=== PATIENT | female | born 1960 | race Caucasian/White ===

== ENCOUNTER 2016-07-04 01:14 | Emergency (ER) | payer OTHER, MEDICARE ==
[~2016-07-04] VITALS: Ht 170.2 cm; Wt 93.0 kg
--- NOTE | 2016-07-04 01:17 | ED MVC/FALL/TRAUMA COMPLAINT ---
History of Present Illness General Chief Complaint: Fall Stated Complaint: MECHANICAL FALL Source: patient, old records, EMS Exam Limitations: no limitations Vital Signs & Intake/Output Vital Signs & Intake/Output Vital Signs Date Time Temp Pulse Resp B/P Pulse O2 O2 Flow FiO2 Ox Delivery Rate 07/04 0123 97.9 89 16 140/80 98 Allergies Coded Allergies: quetiapine (UNKNOWN 08/24/15) Reconcile Medications CANE 1 EACH EACH 1 UNIT .ROUTE X1 PRN FOR AMBULATION ICD 10 G35 Triage Nurses Notes Reviewed? yes Onset: Abrupt Duration: minute(s): Timing: single episode today Severity: mild, moderate Injuries/Fall Location: head Method of Injury: direct blow, fall Loss of Consciousness: no loss of consciousness Modifying Factors: Improves With: rest. Associated Symptoms: head injury HPI: 55 yo woman h/o multiple sclerosis, usually walks with a cane, woke up tonight to use the bathroom. She fell on the way back to bed and hit her head on a cardboard box. No LOC. Past History Medical History Any Pertinent Medical History? see below for history Neurological: multiple sclerosis Surgical History Surgical History: none Psychosocial History What is your primary language Taiwanese Family History Hx Contributory? No Review of Systems Review of Systems Constitutional: Reports: no symptoms. Eyes: Reports: no symptoms. Ears, Nose, Throat, Mouth: Reports: no symptoms. Respiratory: Reports: no symptoms. Cardiovascular: Reports: no symptoms. Gastrointestinal/Abdominal: Reports: no symptoms. Genitourinary: Reports: no symptoms. Musculoskeletal: Reports: no symptoms. Skin: Reports: no symptoms. Neurological/Psychological: Reports: no symptoms. All Other Systems: Reviewed and Negative Physical Exam Physical Exam General Appearance: well developed/nourished, no apparent distress, alert, mild distress Head: atraumatic, normal appearance Eyes: Bilateral: normal appearance, PERRL, EOMI. Ears, Nose, Throat, Mouth: hearing grossly normal Neck: normal inspection, supple, full range of motion Respiratory: normal breath sounds, chest non-tender, no respiratory distress, quiet respiration, lungs clear Cardiovascular: regular rate/rhythm Gastrointestinal: normal bowel sounds, soft, non-tender, no organomegaly Back: normal inspection, normal range of motion Extremities: normal range of motion Neurologic/Psych: no motor/sensory deficits, awake, alert, oriented x 3 Skin: intact, normal color, warm/dry Core Measures ACS in differential dx? No Severe Sepsis Present: No Septic Shock Present: No Progress Differential Diagnosis: ICH Plan of Care: Orders Procedure Date/time Status CT HEAD WO IV CONTRAST 07/[address] CERV SPINE WO IV CONTRAST 07/04 126 Active Diagnostic Imaging: Viewed by Me: CT Scan. Discussed w/RAD: CT Scan. Radiology Impression: head/cervical ct... no acute disease. Comments: PATIENT: ALLYN MUNROE PRESENT AGE: 55 PATIENT ACCOUNT NO: [id number] : 61 LOCATION: [facility] ORDERING PHYSICIAN: BENI CHOWDHURY MD SERVICE DATE: 07/04/16 EXAM TYPE: CAT - CT CERV SPINE WO IV CONTRAST; CT HEAD WO IV CONTRAST EXAMINATION: CT HEAD WITHOUT CONTRAST CT CERVICAL SPINE WITHOUT CONTRAST CLINICAL INFORMATION: Fall. Injury. COMPARISON: MR of the head 05/08/2012 TECHNIQUE: Imaging was performed from the skull base to vertex without intravenous administration of contrast. In addition, helical noncontrast CT imaging was acquired through the cervical spine and source images were reviewed along with axial reconstructions and sagittal and coronal MPRs. DLP: 171.41 mGy-cm FINDINGS: HEAD: No intracranial mass, hemorrhage, or midline shift is visualized. The ventricles and sulci are age-appropriate. No extra-axial collections are identified. There is atrophy with prominence of the ventricles and the sulci and hypodensity of the periventricular white matter due to chronic small vessel ischemic disease. The paranasal sinuses and mastoid air cells are well aerated. CERVICAL SPINE: There is no evidence of acute cervical spine fracture. There is degenerative disc disease. Cervical disc height narrowing and endplate spurs of the vertebrae most significant at C4-C5 to the cervical level of C7-T1. There is bony ankylosis of the right C2-C3 facet. No pre- or paravertebral soft tissue abnormality is identified. Limited assessment of the lung apices is unremarkable. IMPRESSION: 1. No acute intracranial pathology. 2. No CT evidence of acute cervical spine fracture or traumatic subluxation. Degenerative disc disease of cervical spine. DICTATED BY: PAM BUTLER MD DATE/TIME DICTATED:07/04/16219 MACHINE QUILT STUFFER:ANDREW DATE/TIME TRANSCRIBED:07/04/16219 CONFIDENTIAL, DO NOT COPY WITHOUT APPROPRIATE AUTHORIZATION. <Electronically signed in Other Vendor System> SIGNED BY: PAM BUTLER MD 07/04/16 0229 Departure Departure Disposition: HOME OR SELF CARE Condition: Stable Clinical Impression Primary Impression: Fall Secondary Impressions: Head injury, Multiple sclerosis Referrals: HILARIO NICHOLS,ALEXANDRE (PCP/Family) Departure Forms: Customer Survey General Discharge Information Prescriptions: Current Visit Scripts CANE 1 UNIT .ROUTE X1 PRN FOR AMBULATION #1 EACH ICD 10 G35 Comments discussed with patient... she feels safe going home... ct scans benign... pt safe for discharge.
--- NOTE | 2016-07-04 02:29 | CT SCAN REPORT ---
EXAMINATION: CT HEAD WITHOUT CONTRAST CT CERVICAL SPINE WITHOUT CONTRAST CLINICAL INFORMATION: Fall. Injury. COMPARISON: MR of the head 05/08/2012 TECHNIQUE: Imaging was performed from the skull base to vertex without intravenous administration of contrast. In addition, helical noncontrast CT imaging was acquired through the cervical spine and source images were reviewed along with axial reconstructions and sagittal and coronal MPRs. DLP: 171.41 mGy-cm FINDINGS: HEAD: No intracranial mass, hemorrhage, or midline shift is visualized. The ventricles and sulci are age-appropriate. No extra-axial collections are identified. There is atrophy with prominence of the ventricles and the sulci and hypodensity of the periventricular white matter due to chronic small vessel ischemic disease. The paranasal sinuses and mastoid air cells are well aerated. CERVICAL SPINE: There is no evidence of acute cervical spine fracture. There is degenerative disc disease. Cervical disc height narrowing and endplate spurs of the vertebrae most significant at C4-C5 to the cervical level of C7-T1. There is bony ankylosis of the right C2-C3 facet. No pre- or paravertebral soft tissue abnormality is identified. Limited assessment of the lung apices is unremarkable. IMPRESSION: 1. No acute intracranial pathology. 2. No CT evidence of acute cervical spine fracture or traumatic subluxation. Degenerative disc disease of cervical spine.
[2016-07-04] MEDS ORDERED: CANE1 EACH (02:51)
[2016-07-04 03:42] VITALS: BP 138/74
== END 2016-07-04 03:43 ==
LOC: ERH 01:14
DX: S09.90XA Unspecified injury of head, initial encounter (principal); G35 Multiple sclerosis; W19.XXXA Unspecified fall, initial encounter; Y93.01 Activity, walking, marching and hiking; Y92.9 Unspecified place or not applicable

== ENCOUNTER 2017-03-23 17:51 | Inpatient (IN) | payer OTHER, MEDICARE ==
[~2017-03-23] VITALS: Ht 170.2 cm; Wt 77.2 kg
[~2017-03-23 17:51] MED LIST: BETASERON0.3 MG SQ; CANE1 EACH; DIVALPROEX SOD250 M2 PO; DIVALPROEX SOD500 M2 PO; GABAPENTIN300 M2 PO; LORATADINE10 M1 PO; NICOTINE PATCH1 EAC3 TOP; PANTOPRAZOLE SO40 M1 PO; PREPARATION H O28 GM TOP; RISPERIDONE1 MG/1 M1 PO; SOLU-MEDROL1000 MG IV; TRAMADOL HCL50 M1 PO; TRAZODONE HCL50 M1 PO; TRIAMTERENE-HC1 EAC1 PO; XANAX0.5 M1 PO
--- NOTE | 2017-03-23 18:16 | ED PSYCHIATRIC COMPLAINT ---
See Addendum History of Present Illness General Chief Complaint: General Adult Stated Complaint: BIBA FOR MULTIPLE COMPLAINTS Source: patient Exam Limitations: PSYCHIATRIC DISORDER Vital Signs & Intake/Output Vital Signs & Intake/Output Vital Signs Date Time Temp Pulse Resp B/P B/P Pulse O2 O2 Flow FiO2 Mean Ox Delivery Rate 03/26 0913 98.8 69 18 101/61 93 03/26 0722 96.6 69 18 105/62 93 Room Air 03/26 0628 96.4 65 18 101/57 95 Room Air 03/25 2250 98.8 70 18 110/55 95 Room Air 03/25 2054 99.1 73 20 105/57 99 Room Air 03/25 1659 99.5 76 18 104/61 95 Room Air 03/25 1534 98.0 74 18 122/67 97 Room Air 03/25 1348 97.8 77 16 93/66 97 Room Air 03/25 1202 Room Air Room Air 03/25 1157 97.4 77 15 92/57 95 Room Air Room Air ED Intake and Output 03/26 0000 03/25 1200 Intake Total 450 Output Total Balance 450 Intake, Oral 450 Allergies Coded Allergies: quetiapine (Severe, ANAPHYLAXIS 03/02/17) bee venom protein (honey bee) (UNKNOWN 03/23/17) carbamazepine (PRURITIS 03/02/17) cefprozil (From CEFZIL) (CAN'T BREATHE PER PT 03/23/17) honey (unknown 02/23/17) nut - unspecified (unknown 02/23/17) Reconcile Medications Divalproex Sodium 500 MG TABLET.DR 500 MG PO BID mood stabilization Gabapentin 300 MG CAPSULE 2 CAP PO TID UNKNOWN (Reported) Loratadine 10 MG TABLET 10 MG PO DAILY allergies Nicotine (Nicotine Patch) 21 MG/24 HOUR PATCH.TD24 21 MG TOP DAILY smoking cessation Pantoprazole Sodium 40 MG TABLET.DR 1 TAB PO DAILY ACID REFLUX (Reported) Phenyleph/Mineral Oil/Petrolat (Preparation H Ointment) 0.25 %-14 %-74.9 % OINT.APPL 1 RENEE TOP Q6P PRN hemorrhoids Risperidone 1 MG/ML SOLUTION 4 MG PO AT BEDTIME disorganized thinking Risperidone 1 MG/ML SOLUTION 3 MG PO DAILY@1000 for disorganized thinking Trazodone HCl 50 MG TABLET 50 MG PO AT BEDTIME off-label for insomnia Triamterene/Hydrochlorothiazid (Triamterene-Hctz 37.5-25 MG Tb) 37.5 MG-25 MG TABLET 1 TAB PO DAILY HEART (Reported) Triage Nurses Notes Reviewed? yes HPI: Patient presents for evaluation of "her body is not comprehending". Patient is an extremely poor historian due to what I suspect is an underlying psychiatric disorder. She initially asked for another wristband to prevent her from the TV. (Petrona NICHOLS,Jerry Navarro) Past History Travel History Traveled to [place] past 21 day No Medical History Any Pertinent Medical History? 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 No (Petrona NICHOLS,Jerry Navarro) Review of Systems Review of Systems Constitutional: Reports: no symptoms. EENTM: Reports: no symptoms. Respiratory: Reports: no symptoms. Cardiovascular: Reports: no symptoms. GI: Reports: no symptoms. Genitourinary: Reports: no symptoms. Musculoskeletal: Reports: no symptoms. Skin: Reports: no symptoms. Neurological/Psychological: Reports: no symptoms. Hematologic/Endocrine: Reports: no symptoms. Immunologic/Allergic: Reports: no symptoms. All Other Systems: Reviewed and Negative (Petrona NICHOLS,Jerry Navarro) Physical Exam Physical Exam General Appearance: SEE BELOW Neurological/Psychiatric: SEE BELOW Comments: Gen.: Well-nourished, well-developed, no acute respiratory distress. Head: Normocephalic, atraumatic. Eyes: Normal inspection bilaterally Ears: Normal inspection bilaterally Nose: Normal inspection Throat/mouth : Moist mucosa Neck: Supple, full range of motion, no goiter Heart: Regular rate and rhythm, no murmurs rubs or gallops Lungs: Clear to auscultation bilaterally with normal air entry Chest: Nontender Back: Normal range of motion Abdomen: Soft, nontender, nondistended, normal bowel sounds Extremities: Normal range of motion grossly, equal radial pulses, no cyanosis clubbing or edema Neurologic: Cranial nerves grossly intact, speech is clear Skin: warm and dry Psychiatric: Calm, cooperative, no apparent delusions or hallucinations, patient 's logic often difficult to follow SAD PERSONS Done? DEFERRED TO CRISIS (Petrona NICHOLS,Jerry Navarro) Progress Differential Diagnosis: PSYCHIATRIC DISORDER Plan of Care: Orders Procedure Date/time Status Admit to inpatient psych 03/26 1034 Active Current Medications Sig/Favio Start time Last Medication Dose Stop Time Status Admin Risperidone 4 MG AT BEDTIME 03/24 2200 UNVr 03/25 (RisperDAL) 2110 Trazodone HCl 50 MG AT BEDTIME 03/24 2200 UNVr 03/25 (Desyrel) 2109 Divalproex Sodium 500 MG BID 03/24 1000 UNVr 03/25 (Depakote) 2109 Gabapentin 600 MG TID 03/24 1000 UNVr 03/25 (Neurontin) 2110 Risperidone 3 MG DAILY@1000 03/24 1000 UNVr 03/25 (RisperDAL) 1100 Triamterene/HCTZ 1 CAP DAILY 03/24 1000 UNVr 03/25 (Dyazide) 1100 Comments: 03/23/2017 7:49:17 PM 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 (Petrona NICHOLS,Jerry Navarro) Hand-Off Endorsed To: Liam Guerra MD Endorsed Time: 07 Pending: consult (Jacqui NICHOLS,Tyron Mi) Hand-Off Endorsed To: Gomez Ro MD Endorsed Time: 190 Pending: consult (BED SEARCH) Comments: A bed search is underway for wero-psych. (Liam Guerra MD) Hand-Off Endorsed To: Liam Guerra MD Endorsed Time: 07 Pending: other (bed search) (Gomez Ro MD) Departure Departure Disposition: STILL A PATIENT Condition: Stable Clinical Impression Primary Impression: Psychosis Qualifiers: Psychosis type: unspecified psychosis type Qualified Code: F29 - Unspecified psychosis not due to a substance or known physiological condition Referrals: Phillip Pina MD (PCP/Family) Departure Forms: Customer Survey General Discharge Information (Jerry Russ MD) Departure Comments 03/23/17, 21:15... discussed with crises team who suggests case management evaluation / social admission. pt to be re-evaluated by crises in the AM. (Jacqui NICHOLS,Tyron Mi) Psych Admission Note Psychiatric Admission: I have seen and evaluated ALLYN MUNROE. I have also reviewed all the pertinent lab results and diagnostic results. ALLYN MUNROE will be admitted to our inpatient Psychiatric unit for treatment and care. (Mari NICHOLS,Liam Taylor) Departure Forms: Customer Survey General Discharge Information (Petrona NICHOLS,Jerry Navarro) Departure Comments 03/23/17, 21:15... discussed with normaes team who suggests case management evaluation / social admission. pt to be re-evaluated by jacky in the AM. (Jacqui NICHOLS,Tyron Mi)
[2017-03-23 18:51] LABS: ABSOLUTE BASOPHIL COUNT 0 /CUMM (0.0-0.2); ABSOLUTE EOSINOPHIL COUNT 0.2 /CUMM (0.0-0.7); ABSOLUTE GRANULOCYTE CT 7.2 /CUMM (1.4-6.5); ABSOLUTE LYMPH COUNT 2.5 /CUMM (1.2-3.4); ABSOLUTE MONOCYTE COUNT 0.8 /CUMM (0.10-0.60); BASOPHIL % 0.4 % (0.0-2.0); EOSINOPHIL % 1.7 % (0-5); GRANULOCYTE % 67.4 % (42.2-75.2); HEMATOCRIT 38.5 % (37-47); MEAN CORPUSCULAR HGB 26.9 PG (27.0-31.0); MEAN CORPUSCULAR HGB CONC 32.8 G/DL (33.0-37.0); MEAN CORPUSCULAR VOLUME 82.2 FL (81.0-99.0); PLATELET COUNT 268 /CUMM (130-400); RBC DISTRIBUTION WIDTH 14.5 % (11.5-14.5); RED BLOOD CELL CT 4.68 /CUMM (4.20-5.40); WHITE BLOOD CELL COUNT 10.7 /CUMM (4.8-10.8)
--- NOTE | 2017-03-23 22:21 | ED PSYCH CRISIS CONSULTATION ---
See Addendum Crisis Consult Basic Assessment Date of Consult: 03/23/17 Responsible Person/Accompanied By: Brought in by ambulance from home (called by son) Insurance Authorization: Insurance #1: Insurance name: MEDICARE A [employer] Policy number: [id number] ED Provider: Patient's ED Provider: Petrona NICHOLS,Jerry Navarro Primary Care Physician: Patient's PCP: Yovani NICHOLS,Phillip PCP's Current Psychiatrist: Referred to [facility] outpatient psychiatry Chief Complaint: Altered mental status Patient's Quote: "I'm not trying hard enough to take my meds...I was out of sorts,very upset Present Illness: Patient is a 56 year old female who presents to [facility] emergency department by ambulance after her son called due to patient presenting with disorganized speech. Patient is diagnosed with multipe sclerosis (MS) - Dr. Damien Soto MD is patient's neurologist. Patient also has a historical diagnosis of bipolar disorder, depressed with psychotic features. Patient son states she was "speaking gibberish" and acting oddly. Per son, a visiting nurse service ([facility]) went to the patient's home earlier today and found the patient pacing back and forth. Patient apparently refused her medications and asked the nurse to leave. [facility] with follow up plan to have outpatient services through [facility] and in-home support with [facility] nursing services / [facility] for in-home individual psychotherapy. Patient states "I feel worse...I'm not safe to be going home...I'm afraid to use the television... there's no electricity." Patient was observed to be emotionally labile during evaluation, becoming tearful mid-sentence. Patient states her son is concerned about her "he's afraid to leave me home alone." Patient denies substance use and her urine toxicology screening is negative for all substances. Patient reports she is experiencing pain "everywhere" and specified in her "arms,feet,hands." Patient denies current suicidal ideation / homicidal ideation. Patient reports experiencing visual hallucinations of "planes flying" inside earlier today but denies this currently. Patient denies auditory hallucinations. Patient was prescribed the following medications on discharge from the hospital yesterday: 1.)Loratadine for allergies 10 MG 2.)Nicotine for smoking cessation 21mg 3.)Divalproex Sodium for mood stabilization 500 MG 4.)Trazodone HCl off-label for insomnia 50 Milligram 5.)Risperidone Bedtime 4 mg at 10am 3mg 6.)Gabapentin Patient's Address: [address] [address] Who Do You Live With? Son (Edgardo) Family/Informants Interviewed: Patient's son - Edgardo Allergies - Coded Allergies: quetiapine (Severe, ANAPHYLAXIS 03/02/17) bee venom protein (honey bee) (UNKNOWN 03/23/17) carbamazepine (PRURITIS 03/02/17) cefprozil (From CEFZIL) (CAN'T BREATHE PER PT 03/23/17) honey (unknown 02/23/17) nut - unspecified (unknown 02/23/17) Current Medications - Scheduled Medications Divalproex Sodium 500 MG TABLET.DR 500 MG PO BID mood stabilization #28 TAB Prescribed by Tyron Wong MD on 03/22/17 Gabapentin 300 MG CAPSULE 2 CAP PO TID UNKNOWN #180 (Reported) Entered as Reported by Ori Bynum on 01/09/17 142 Loratadine 10 MG TABLET 10 MG PO DAILY allergies #14 TAB Prescribed by Tyron Wong MD on 03/22/17 Nicotine (Nicotine Patch) 21 MG/24 HOUR PATCH.TD24 21 MG TOP DAILY smoking cessation #14 PAT Prescribed by Tyron Wong MD on 03/22/17 Pantoprazole Sodium 40 MG TABLET.DR 1 TAB PO DAILY ACID REFLUX #30 (Reported) Entered as Reported by Ori Bynum on 01/09/17 1429 Risperidone 1 MG/ML SOLUTION 4 MG PO AT BEDTIME disorganized thinking #56 MG Prescribed by Tyron Wong MD on 03/22/17 Risperidone 1 MG/ML SOLUTION 3 MG PO DAILY@1000 for disorganized thinking #42 MG Prescribed by Tyron Wong MD on 03/22/17 Trazodone HCl 50 MG TABLET 50 MG PO AT BEDTIME off-label for insomnia #14 TAB Prescribed by Tyron Wong MD on 03/22/17 Triamterene/Hydrochlorothiazid (Triamterene-Hctz 37.5-25 MG Tb) 37.5 MG-25 MG TABLET 1 TAB PO DAILY HEART #30 (Reported) Entered as Reported by Ori Bynum on 01/09/17 1429 Scheduled PRN Medications Phenyleph/Mineral Oil/Petrolat (Preparation H Ointment) 0.25 %-14 %-74.9 % OINT.APPL 1 RENEE TOP Q6P PRN hemorrhoids #1 TUBE Prescribed by Tyron Wong MD on 03/22/17 Discontinued Medications Alprazolam (Xanax) 0.5 MG TABLET 1 TAB PO TID anxiety (Reported) Discontinued reason: Med no longer needed Divalproex Sodium 250 MG TABLET.DR 1 TAB PO TID bipolar (Reported) Discontinued reason: Changed Dose Interferon Beta-1b (Betaseron) 0.3 MG VIAL 1 VIAL SQ EOD MS (Reported) Discontinued reason: Per MS Tramadol HCl 50 MG TABLET 1 TAB PO Q6P PRN Pain (Reported) Discontinued reason: Med no longer needed Trazodone HCl 50 MG TABLET 0.5 TAB PO QPM insomnia (Reported) Discontinued reason: Changed Dose Laboratory Results: Laboratory Tests 03/23/17 1930: Urine Opiates Screen < 100.00, Methadone Screen < 40, Barbiturate Screen < 60, Ur Phencyclidine Scrn < 6.00, Amphetamines Screen < 100, U Benzodiazepines Scrn < 85, Urine Cocaine Screen < 50, Urine Cannabis Screen 9.60 03/23/17 1830: Anion Gap 11, Estimated GFR > 60, BUN/Creatinine Ratio 27.8 H, Glucose 111 H, Calcium 9.6, Total Bilirubin 0.8, AST 19, ALT 25, Alkaline Phosphatase 69, Total Protein 7.0, Albumin 3.9, Globulin 3.1, Albumin/Globulin Ratio 1.3, CBC w Diff NO MAN DIFF REQ, RBC 4.68, MCV 82.2, MCH 26.9 L, RDW 14.5, MPV 9.0, Gran % 67.4 , Lymphocytes % 23.4, Monocytes % 7.1, Eosinophils % 1.7, Basophils % 0.4, Absolute Granulocytes 7.2 H, Absolute Lymphocytes 2.5, Absolute Monocytes 0.8 H, Absolute Eosinophils 0.2, Absolute Basophils 0, PUBS MCHC 32.8 L, Serum Alcohol < 10.0 Past History Past Medical History Any Pertinent Medical History? 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 [facility] dates are unclear Response to Treatment Varied Diagnosis by History: Bipolar with psychotic features Substance Use/Abuse History Drug Use/Abuse Substances Used/Abused No First Use - Last Used - How much used/taken - How often - For how long - Route of use - Substance Abuse Treatment Substance Abuse Treatment Past Substance Abuse TX No Inpatient Treatment No Outpatient Treatment No Location of Treatment - Reason for Treatment - Dates of Treatment - Response to Treatment - Comments: - Current Mental Status Mental Status Orientation: Person, Place Affect: Labile Speech: Incoherent Neuro-vegetative: Concentration Poor, Sleep Disturbance Appearance Appearance- Dress/Hygiene: Patient dressed in hospital attire with no remarkable features. Slightly unkept hair and finger nails. Behaviors Thought Process: Disorganized, Irrational, Loose Association Thought Content: Delusions, Visual Hallucinations Memory: WNL Insight: Poor SI/HI Risk Assessment Past Suicidal Ideation/Attempts Yes Current Suicidal Ideation/Att No Past Homicidal Ideation/Att: No Current Homicidal Ideation/Attempts No Degree of Intent: None Gravely Disabled: Lack of Insight Risk Factors: chronic/serious med cond., limited support Lethality Ratin (mild) PTSD Checklist PTSD Done? patient declined ED Management Sitter: Yes Restraints: No (Patient is calm & cooperative) DSM5/PS Stressors/Medical Prob Diagnosis' (DSM 5, Stressors, Medical): F31.5 Bipolar I disorder, Current or most recent episode depressed, With psychotic features G35 Multiple sclerosis Current GAF: 28 Comments: Recent hospitalization Departure Disposition Psych Medical Clearance Date: 03/23/17 Medically Cleared at: 1999 Time Started: 1999 Time Ended: 2044 Psychiatrist Consulted: Dr. Naa Barnes MD PhD Date Disposition Established: 03/23/17 Time Disposition Established: 2044 Plan for Disposition - Modality: Case management consultation Rationale for Disposition: Crisis evaluation assessed with on-call psychiatrist Dr. Barnes. Patient will be referred for a case management consultation in consideration of a medical admission or a correction facility. Referrals Phillip Pina MD (PCP/Family)
--- NOTE | 2017-03-24 11:20 | ED PSYCHIATRIST/APRN CONSULT ---
Psychiatrist/RADIO ELECTRICIAN ED Consult Assessment and Plan: Pt seen as f/u. Pt reports that she cannot take care of herself anymore. She feels that she cannot be alone at home and take care of herself as well as meds. She notes that she is feeling OK overall. Notes +VHs but was too distracted by eating sandwich to get any details. Denies SI or HI. 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 - Recent d/c meds continued at the ER - Bed search underway, pt is in agreement with the plan
--- NOTE | 2017-03-25 11:29 | ED PSYCHIATRIST/APRN CONSULT ---
Psychiatrist/BUFFER INFLATED PAD ED Consult Assessment and Plan: Pt more clear today. Notes that wants to return to [facility]. Feels cannot live alone as cannot manage meds, housekeeping or finances. Feels overwhlemed by everthing. Denies SI or HI. MSE: Much older than stated age, cooperative but defensive at times, no eye contact, slightly slurred and rapid speech, non-pressured, mood "fine..." affect slightly less irritable, non-labile, congruent, flat; tangiental TP at best, no thought blocking but slowed overall, notes VHs, denies AHs, does not appear to be responding to internal stimuli, I/J: very poor A/P: Pt with bipolar disorder c/b major neurocognitive disorder secondary to medication condition, MS, with ongoing psychosis and mood distubance and inability to care for self at home. - Recent d/c meds continued at the ER - Bed search underway, pt is in agreement with the plan
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
[2017-03-26 17:03] VITALS: BP 112/74
[2017-03-26 20:05] VITALS: BP 111/75
[2017-03-27 08:48] VITALS: BP 112/59
[2017-03-27 12:32] VITALS: BP 91/57
--- NOTE | 2017-03-27 13:49 | History & Physical ---
General Information and HPI History of Present Illness: This middle-aged female was admitted to the hospital within a couple of days after being discharged from psychiatry because she did not do well at home. She reports that she cannot live at home anymore because her son cannot take care of her and she is unable to cope by herself due to her illnesses and therefore came to the hospital. She admits that she was not taking any medication at home and denies any specific pains or aches at this time although she claims she is weak all over. She admits that she was not taking any medicine for her multiple sclerosis or hypertension. She has reportedly a history of multiple sclerosis and some hypertension in the past but has not been taking any medicine. She claims she has seen multiple sclerosis specialist previously was given her Betaseron injections but she does not know when it was last time she took it but it has been a long time. He was living with her son prior to the last admission and now the son cannot take care of her due to increased weakness and her medical problems. She denies drinking any alcoholic taking any other illegal drugs. She is not employed and claims her son goes to his work everyday and cannot take care of far. Allergies/Medications Allergies: Coded Allergies: quetiapine (Severe, ANAPHYLAXIS 03/02/17) bee venom protein (honey bee) (UNKNOWN 03/23/17) carbamazepine (PRURITIS 03/02/17) cefprozil (From CEFZIL) (CAN'T BREATHE PER PT 03/23/17) honey (unknown 02/23/17) nut - unspecified (unknown 02/23/17) Home Med list Divalproex Sodium 500 MG TABLET.DR 500 MG PO BID mood stabilization Gabapentin 300 MG CAPSULE 2 CAP PO TID UNKNOWN (Reported) Loratadine 10 MG TABLET 10 MG PO DAILY allergies Nicotine (Nicotine Patch) 21 MG/24 HOUR PATCH.TD24 21 MG TOP DAILY smoking cessation Pantoprazole Sodium 40 MG TABLET.DR 1 TAB PO DAILY ACID REFLUX (Reported) Phenyleph/Mineral Oil/Petrolat (Preparation H Ointment) 0.25 %-14 %-74.9 % OINT.APPL 1 RENEE TOP Q6P PRN hemorrhoids Risperidone 1 MG/ML SOLUTION 4 MG PO AT BEDTIME disorganized thinking Risperidone 1 MG/ML SOLUTION 3 MG PO DAILY@1000 for disorganized thinking Trazodone HCl 50 MG TABLET 50 MG PO AT BEDTIME off-label for insomnia Triamterene/Hydrochlorothiazid (Triamterene-Hctz 37.5-25 MG Tb) 37.5 MG-25 MG TABLET 1 TAB PO DAILY HEART (Reported) Past History Travel History Traveled to [place] past 21 day No Medical History Any Pertinent Medical History? 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 Denies: fever. EENTM: Denies: no symptoms. Cardiovascular: Denies: no symptoms. Respiratory: Denies: no symptoms. GI: Denies: no symptoms. Genitourinary: Denies: no symptoms. Musculoskeletal: Reports: see HPI (claims she has more weakness o). Skin: Denies: no symptoms. Neurological/Psychological: Reports: see HPI, anxiety, confusion, emotional problems, pre-existing deficit ( weakness of muscles due to MS). Exam & Diagnostic Data Last 24 Hrs of Vital Signs/I&O Vital Signs Date Time Temp Pulse Resp B/P B/P Pulse O2 O2 Flow FiO2 Mean Ox Delivery Rate 03/27 1232 92 91/57 03/27 0848 97.2 83 112/59 03/26 2005 98.4 80 111/75 03/26 1703 85 112/74 03/26 1619 98.8 81 16 98/78 97 Room Air Intake & Output 03/27 1600 03/27 0800 03/27 0000 Intake Total Output Total Balance Patient 170 lb Weight Physical Exam General Appearance Alert, Cooperative, No Acute Distress Skin No Rashes, No Breakdown, No Significant Lesion HEENT Atraumatic, EOMI, Mucous Membr. moist/pink Neck Supple, No JVD, No thryomegaly, +2 Carotid Pulse wo Bruit Lymphatic Cervical nl Cardiovascular Regular Rate, Normal S1, Normal S2, No Murmurs, Gallops, Rubs Lungs Clear to Auscultation, Normal Air Movement Abdomen Normal Bowel Sounds, Soft, No Tenderness, No Hepatospenomegaly, No Masses Neurological Exam Findings: Normal Speech, Normal Tone, Cranial Nerves 3-12 NL (muscle power equal but weak) Cranial Nerves II through XII: Within normal limits and intact Extremities No Clubbing, No Cyanosis, No Edema, No Tenderness/Swelling, somewhat weak muscle power all over but no localized or lateralizing weakness. Assessment/Plan Assessment: This middle-aged female is admitted for increasing weakness and worsening mental status as well as noncompliance with the medication. She reports that she cannot live at home anymore and needs a place to go because her son cannot take care of her. She has history of multiple sclerosis and hypertension but has not been taking any medication at home she claims she used to be on injections for MS but has not taken it recently. Presently we will continue her omeprazole as well as triamterene and hydrochlorothiazide in the same dose as before but she does not require any new treatment from medical standpoint. Her admission CBC electrolytes and liver functions are essentially within normal limits and acceptable and she does not need any other testing at this time. As Ranked By This Provider Problem List: 1. Multiple sclerosis 2. Confusion 3. Bipolar disorder 4. Psychosis Qualifiers Psychosis type: unspecified psychosis type Qualified Code: F29 - Unspecified psychosis not due to a substance or known physiological condition Miscellaneous Miscellaneous Documentation Attending Case Discussed With: Tyron Wong MD Primary Care Physician: Phillip Pina MD Patient sees these Specialists none Level of Patient Care: PRASANNA Coleman Attending Review Statement Attending Statement Attending MD Statement: examined this patient, reviewed EMR data (avail), discussed with nursing Attending Assessment/Plan: This middle-aged female is admitted for worsening mental status. She claims that she cannot take care of herself at home and she probably will be better cared for in the [facility] type setting. Presently she is fairly stable from medical standpoint without any acute medical problem at this time and her present medication including omeprazole and triamterene hydrochlorothiazide should be continued in the same dose which does not require any other treatment or workup from medical standpoint.
--- NOTE | 2017-03-27 15:42 | CPS PROVIDER INIT ASMT PSYCH ---
Psychiatric Admission Business Line Manager's Note Reviewed: Yes Patient Seen and Examined: Yes Identifying Information: 56 yo DWF with bipolar d/o, depressed, with psychotic fx's and MS, known to me from her [facility] stay from 02/23/17-03/22/17. She was readmitted on 03/26/17 on a voluntary basis after presenting to the ER on 03/23/17. Chief Complaint: Per son, patient was "speaking gibberish" and was displaying odd behavior. Visiting nurse found the patient was pacing. Patient refused her medications at home and asked the visiting nurse to leave. shafting worker noted that the patient's affect was labile. Patient reported to poultry offal worker that she was having pain everywhere and experienced VHs of planes flying earlier that day. Reaction to Hospitalization: Seems unhappy, especially with my recommendation that she go to a SNF. Terminated interview prematurely. History of Present Illness Onset of Illness: Original date of dx of bipolar d/o unknown. Circumstances Leading to Admission: Medication non-adherence. Nursing visit non-adherence. Chronic mental illness and MS. Problem(s) Justifying Need for Admission: Disorganized thinking. Other HPI: Case and treatment plan discussed in team meeting. Nursing staff reports that the patient was incontinent last night. Does not do her ADL's. Very disorganized. Requires a lot of direction. Past Psychiatric History Past Diagnosis(es)- if any: Bipolar d/o with psychotic fx's. MS. Past Precipitating Factors- if any: Poor sleep. Medication non-adherence. - Include inpatient and outpatient treatment Treatment History: Inpatient at [facility] as above, also in 2013. Per records, [facility] x3 in 2008, 2009. Saw MAIRA Collier at [facility] [place]. History of Suicide Attempts or Gestures Denies as of last admission here. Substance Abuse History: As of last admission here: 20+ cigs/day, no alcohol, no street drugs. Allergies: Coded Allergies: quetiapine (Severe, ANAPHYLAXIS 03/02/17) bee venom protein (honey bee) (UNKNOWN 03/23/17) carbamazepine (PRURITIS 03/02/17) cefprozil (From CEFZIL) (CAN'T BREATHE PER PT 03/23/17) honey (unknown 02/23/17) nut - unspecified (unknown 02/23/17) Home Med List: START taking these NEW Home Medications: Loratadine Dose: ORAL, DAILY for allergies Qty: 14 Sent to (Loratadine) 10 MG 10 Milligram Last Taken: 03/22/17 Refills: 0 Pharm 1 TABLET Time: 839 Nicotine (Nicotine Dose: On the skin, DAILY for Qty: 14 Sent to Patch) 21 MG/24 HOUR 21 Milligram smoking cessation Refills: 0 Pharm 1 PATCH.TD24 Last Taken: 03/22/17 Time: 39 Divalproex Sodium Dose: ORAL, TWICE DAILY for Qty: 28 Sent to (Divalproex Sodium) 500 Milligram mood stabilization Refills: 0 Pharm 1 500 MG TABLET. Last Taken: 03/22/17 Time: 839 Trazodone HCl Dose: ORAL, AT BEDTIME for Qty: 14 Sent to (Trazodone HCl) 50 50 Milligram off-label for insomnia Refills: 0 Pharm 1 MG TABLET Last Taken: 03/21/17 Time: 2138 Risperidone Dose: ORAL, AT BEDTIME for Qty: 14 Sent to (Risperidone) 4 Milligram disorganized thinking Refills: 0 Pharm 1 Last Taken: 03/21/17 Time: 2138 Risperidone Dose: ORAL, DAILY@1000 for for Qty: 14 Sent to (Risperidone) 3 Milligram disorganized thinking Refills: 0 Pharm 1 Last Taken: 03/22/17 Time: 840 Phenyleph/Mineral Dose: On the skin, EVERY SIX Qty: 1 Sent to Oil/Petrolat 1 Application HOURS NEEDED as Refills: 0 Pharm 1 (Preparation H needed for hemorrhoids Ointment) 0.25 %-14 NOT GIVEN IN THE %-74.9 % OINT.[facility]. CONTINUE taking these Home Medications: Pantoprazole Sodium Dose: ORAL, DAILY for ACID (Pantoprazole Sodium) 40 1 Tablet REFLUX MG TABLET. LAST GIVEN PRILOSEC: 03/22/17 @ 0650 Gabapentin (Gabapentin) Dose: ORAL, THREE TIMES DAILY 300 MG CAPSULE 2 Capsule for UNKNOWN Last Taken: 03/22/17 Time: 1551 Triamterene/ Dose: ORAL, DAILY for HEART Hydrochlorothiazid 1 Tablet Last Taken: 03/22/17 (Triamterene-Hctz 37.5- Time: 0841 25 MG Tb) 37.5 MG-25 MG TABLET - Include any medical condition(s) that may - impact the patient's recovery/remission Past Medical History: Accidentally cut right hand on a can in the past. MS dx'd at age 36. [address] Soto. Past History Medical History Any Pertinent Medical History? unobtainable Neurological: multiple sclerosis EENT: NONE Cardiovascular: hypertension Respiratory: NONE Gastrointestinal: GERD Hepatic: NONE Renal: NONE Musculoskeletal: uses a walker Psychiatric: MOOD DISORDER Endocrine: NONE Blood Disorders: NONE Cancer(s): NONE OPTIONS TRADER/Reproductive: NONE History of MRSA: No History of VRE: No History of CDIFF: No Isolation History: Standard Surgical History Surgical History: dental extractions Psychiatric Family/Social Hx Family History Psychiatric Illness: Father had ECT. Substance Use: Per last admission, "all the people in my [place]." Suicides: Not asked. Social History Living Situation: . Lives with 22 yo son, Tyron. Significant Relationships (family/friends): Son, Edgardo. Parents are . Education: HS graduate + 3 months of college. Vocation/Occupation: On disability. Legal: No hx arrests. Healthly Behaviors Screening Tobacco Screening Tobacco Use from ED Docu: Cognitive Impairment - If tobacco counseling indicated - the following topics are required. - #1 Recognizing dangerous situations. - #2 Coping Skills. - #3 Basic information about quitting. Status of Tobacco Cessation Counseling: Counseling Refused Cessation Med Status Nicotine Patch Ordered Alcohol Screening - ETOH screen POS if BAL >=80 or Audit-C>= M4/F3 Audit-C Score from Diag Assess: 0 Alcohol Use Screening Results: Neg per Audit C &/or BAL - If ETOH counseling indicated - the following topics are required. - #1 Express concern about the patient's - drinking at unhealthy levels, include informing - of national norms for moderate drinking: - men <= 14 drinks/week, max 4 drinks/occasion - women <= 7 drinks/week, max 3 drinks/occasion - #2 Providing feedback, including linking alcohol to - negative physical effects (liver injury, hypertension) - negative emotional effects (relationship problems and - depression) - negative occupational consequences (reduced work - performance) - #3 Advising the patient to abstain from alcohol or - to drink below national norms for moderate drinking - (as listed above). Status of ETOH Use Counseling: N/A B/C NO ETOH Use Metabolic Screening - Screen if on a Neuroleptic Medication - Metabolic screening should include: - Blood Pressure, BMI, Glucose or Hgb A1c, & a - Lipid profile from within the past 365 days. Metabolic Screening () Not Applicable, patient not on a neuroleptic. OR () Patient on a neuroleptic(s) . Enter below results for Hemoglobin A1C, and lipid panel if obtained during the last 365 days. BMI: 26.000 Blood Pressure: 91/57 Laboratory Results From [facility] (If applicable): [x] Lab Cholesterol 254 MG/DL H 02/22/17 1145 Cholesterol/HDL Ratio 3.6 % 02/22/17 1145 HDL Cholesterol 71 mg/dL H 02/22/17 1145 Hemoglobin A1c 5.6 % 02/22/17 1145 LDL Cholesterol, Calc 160 mg/dL H 02/22/17 1145 Triglycerides 116 mg/dL 02/22/17 1145 Exam and Plan Mental Status Examination Ambulation Status: Uses walker. Appearance: Was asleep in bed at 1:42 pm. Easily awakened and met with me in office. Dressed in blue paper scrubs. Dissheveled. Attitude towards examiner: Irritable. Left interview prematurely. Psychomotor activity: No psychomotor agitation. Mildly sedated. Behavior: Irritable. Quality of speech: Mildly slurred. Affect: Irritable. Mood: Uncooperative with interview. Suicidal Ideation: Uncooperative with interview. Homicidal Ideation: Uncooperative with interview. Hallucinations: Uncooperative with interview. Paranoid/Delusional Material: Uncooperative with interview. Difficulties with thought organization: Thinking is disorganized. States she was afraid to take her medications at home. I asked her to clarify, and she said she was afraid of going back to the hospital. This did not make much sense. Stated the visiting nurse didn't come because it was the weekend, and that they were Jehovah's Witnesses, but she thought they were nurses. Told poultry offal worker she can't manage at home but became angry when I suggested that we refer her to a SNF and stated she will take her medications and wants to go home. Insight: Poor. Judgment: Poor. Orientation: Seems grossly oriented. Correctly gives her name and . Remembers me. Cognition: Clouded by disorganized thinking. Memory Function: Clouded by disorganized thinking. Estimate of intellectual functioning: Average based on history. Assets/Strengths Patient Identified Assets/Strengths: Uncooperative with interview. Impression/Plan Impression and Plan: Patient returned to the ER 1 day after last discharge. She was medication and visiting nurse non-compliant. She has demonstrated that she cannot function independently at home. - Include all active medical diagnosis that require tx DSM 5 Diagnosis(es): Bipolar d/o, depressed, with psychotic fx's. Multiple sclerosis. Hypertension. GERD. - Initial Tx Plan for Active Psych & Medical Conditions Treatment Plan: The patient will be monitored for safety, ADLs, medication compliance and mood disorder. Additional information is needed from collaterals, including her son. We should simultaneously pursue SNF placement ([facility], [facility]E if necessary) and state hospital placement (either as a voluntary patient or through probate commitment). - Factors that would help patient function - in a less restrictive setting. Factors: Safe disposition.
[2017-03-27 16:55] VITALS: BP 121/71
--- NOTE | 2017-03-27 17:46 | SOCIAL WORKER PROG NOTE PSYCH ---
Social Work Progress Note Progress Note 3:15pm This bid writer met briefly with the patient as she stated that she was feeling very tired (from the medications) and did not wish to have a long discussion. Patient expressed interested in staying at this hospital rather than transferring to another facility/program where she could continue to receive treatment for a longer amount of time. She specifically added, "I don't want to go to a snf." Patient requested to end the conversation at this time and agreed to meet again tomorrow.
[2017-03-27 19:53] VITALS: BP 86/56
[2017-03-28 08:19] VITALS: BP 100/82
--- NOTE | 2017-03-28 10:56 | CP SOUTH PROGRESS NOTE PSYCH ---
Psych (Inpt) Progress Note Progress Note Include the following elements, when applicable: Involvement in the active treatment of the patient with behavioral observations of the patient and the patient's response to the treatment. Review of the ongoing treatment process in the context of the treatment plan. Indication of how multi-disciplinary staff members are carrying out the treatment plan. Plans for future interventions and recommendations for revision of the treatment plan. Liaison with other physicians/providers. Progress Note: Case and treatment plan discussed in team meeting. Staff reports that the patient has been refusing groups. VPA level 72.5. Patient seen at 10:24 a.m. She is resting in bed. Doesn't want to meet with me. Wants to sleep. IMPRESSION: Uncooperative with interview. Slow progress. Continue present treatment plan. We will simultaneously pursue probate commitment to a state bed AND SNF placement.
[2017-03-28 12:15] VITALS: BP 100/60
[2017-03-28 16:05] VITALS: BP 99/76
--- NOTE | 2017-03-28 17:41 | SOCIAL WORKER PROG NOTE PSYCH ---
Social Work Progress Note Progress Note 3:45pm This magazine writer attempted to meet with the patient, however, the patient refused to do so. She stated that she was feeling tired from her medications and wanted to sleep.
[2017-03-28 19:36] VITALS: BP 109/62
[2017-03-29 07:51] VITALS: BP 115/76
[2017-03-29 12:19] VITALS: BP 102/69
--- NOTE | 2017-03-29 12:34 | SOCIAL WORKER PROG NOTE PSYCH ---
Social Work Progress Note Progress Note 11:25am This clinical writer met with patient. She stated that she came to the hospital because "I can't function when my son is not home." She stated that he cooks and cleans for her, however, needs to leave the house to go to work. Patient and this clinical writer explored possible options for discharge plans. She was contradictory in her responses, initially stating that she would like to go to a facility where she can remain for a longer period of time than [facility], however, then stated that she wanted to return home. She stated that she did not want to go to a intermediate. Ultimately, she stated, "I don't know what I want." Patient appeared to become frustrated, stating that she wanted to return to her bed and left the room.
[2017-03-29 16:05] VITALS: BP 131/79
--- NOTE | 2017-03-29 16:10 | CP SOUTH PROGRESS NOTE PSYCH ---
Psych (Inpt) Progress Note Progress Note Include the following elements, when applicable: Involvement in the active treatment of the patient with behavioral observations of the patient and the patient's response to the treatment. Review of the ongoing treatment process in the context of the treatment plan. Indication of how multi-disciplinary staff members are carrying out the treatment plan. Plans for future interventions and recommendations for revision of the treatment plan. Liaison with other physicians/providers. Progress Note: Case and treatment plan discussed in team meeting. Staff reports that patient has been showering. Described as demanding and rude. Able to do things independently but likes to be catered to Patient seen at 12:31 PM. Dressed in blue scrubs, using a rolling walker. States she is trying to do what she has to do. Wants to go home for [place]. I informed her that given her inability to function at home, we are pursuing placement at a state hospital or a correction placement. She left the office stating "I have to go. You make me sick to my stomach." IMPRESSION: Slow progress. Continue present treatment plan.
[2017-03-29 20:02] VITALS: BP 112/81
[2017-03-30 07:41] VITALS: BP 125/64
[2017-03-30 12:22] VITALS: BP 108/76
--- NOTE | 2017-03-30 13:45 | SOCIAL WORKER PROG NOTE PSYCH ---
See Addendum Social Work Progress Note Progress Note Probate commitment paperwork was submitted to [employer] [address]. (Patient stated that she is not willing to go to a [facility] voluntarily. She stated that she does not have an payroll accounting specialist, nor can she afford to pay for one.) 11:15am This junior copywriter met with patient. She reported that she is interested in going to [facility] which she described as an assisted living facility. Patient expressed feeling sad about being unable to spend Thom at home with her son. Patient requested to end this meeting. Patient signed an TREVOR for her son as well as Care. 12:45pm This junior copywriter attempted to reach the patient's son, Tyron Fierro, regarding probate committment paperwork as well as to discuss conservatorship. Patient son does not have a vm that is set up and a message could not be left. This junior copywriter informed the patient of the attempt to reach her son and unable to leave . She stated that she would inform him of this when they speak.
--- NOTE | 2017-03-30 14:56 | CP SOUTH PROGRESS NOTE PSYCH ---
Psych (Inpt) Progress Note Progress Note Include the following elements, when applicable: Involvement in the active treatment of the patient with behavioral observations of the patient and the patient's response to the treatment. Review of the ongoing treatment process in the context of the treatment plan. Indication of how multi-disciplinary staff members are carrying out the treatment plan. Plans for future interventions and recommendations for revision of the treatment plan. Liaison with other physicians/providers. Progress Note: Case and treatment plan discussed in team meeting. Staff reports that the patient told us that she is going to a supervised nursing facility. Reported she could not find her slippers but we are not sure that she brought any slippers here. Patient seen with medical student at 11:11 AM. Patient was asleep in bed and was easily awakened and got up and met with us in the office. Feels better. Reports her [facility]. Patient appears awake and alert. She is slurring words less. Affect is calm and blunted. Mood is not too good because of poor sleep because roommates snores. Patient reports she was given earplugs and these help. Rates sad mood 0/10 and anxiety 3/10. Denies feeling hopeless. Feels helpless "kind of." Denies feeling worthless. Feels guilty for leaving her son home on [place]. She notes that she left him home on Thanksgiving. Denies suicidal and homicidal ideation. Denies auditory and visual hallucinations. Denies paranoid ideation and magical velasco. Reports appetite is good. Energy is not so good right now because she feels tired. Tolerating medications well, without complaint. IMPRESSION: Slow progress. Continue present treatment plan. Placement remains problematic.
--- NOTE | 2017-03-30 15:37 | SOCIAL WORKER PROG NOTE PSYCH ---
Social Work Progress Note Progress Note 2:25pm This senior technical writer returned call from Jenniffer Sosa at [facility] ([phone], [phone]. [phone]), who was inquiring about any discharge plans. This senior technical writer spoke briefly with Lindsey Sosa by phone, however, she was unavailable at the time due to being in a meeting. She stated that she will call this senior technical writer at another time and plan was made to talk by phone later today or 04/02/17.
--- NOTE | 2017-03-30 15:45 | SOCIAL WORKER PROG NOTE PSYCH ---
Social Work Progress Note Progress Note 3:43pm This commercial insurance underwriter called [facility] to inquire about their programs (i.e. assisted living, rehab) as well as their referral process. Tita at [facility] instructed this commercial insurance underwriter to call Denise Winston ([phone]) next week as she had already left today.
[2017-03-30 15:54] VITALS: BP 123/74
[2017-03-30 19:45] VITALS: BP 127/75
[2017-03-31 07:39] VITALS: BP 94/60
--- NOTE | 2017-03-31 09:25 | CP SOUTH PROGRESS NOTE PSYCH ---
Psych (Inpt) Progress Note Progress Note Include the following elements, when applicable: Involvement in the active treatment of the patient with behavioral observations of the patient and the patient's response to the treatment. Review of the ongoing treatment process in the context of the treatment plan. Indication of how multi-disciplinary staff members are carrying out the treatment plan. Plans for future interventions and recommendations for revision of the treatment plan. Liaison with other physicians/providers. Progress Note: Stated that she is doing well, she slept well. She stated that her son is busy this weekend so will not have any visitors. Stated she feels tired but normally does go to her group. Stated that she gets overwhelmed with being alone and her son put her here. She stated that she is hoping to get into a home so she will not be alone. MSE: middle aged woman, fair grooming. Using a walker but steady gait. She has no tics, tremors or abnormal invol movements. Her gait is normal. Her speech is normal. Her mood is good and affect is constricted. Thought process is linear and logical. She denies thoughts to harm herself or anyone else. No voices and no delusions elicited, no evidence of psychosis. She has fair insight and fair judgment. Plan: Continue current plan of care.
[2017-03-31 12:11] VITALS: BP 115/63
[2017-03-31 16:02] VITALS: BP 121/69
[2017-03-31 19:54] VITALS: BP 118/74
[2017-04-01 08:41] VITALS: BP 93/72
--- NOTE | 2017-04-01 10:48 | CP SOUTH PROGRESS NOTE PSYCH ---
Psych (Inpt) Progress Note Progress Note Include the following elements, when applicable: Involvement in the active treatment of the patient with behavioral observations of the patient and the patient's response to the treatment. Review of the ongoing treatment process in the context of the treatment plan. Indication of how multi-disciplinary staff members are carrying out the treatment plan. Plans for future interventions and recommendations for revision of the treatment plan. Liaison with other physicians/providers. Progress Note: Did not want to talk, irritable mildly, stated she doesnt have anything to say. Denied feeling uncomfortable or depressed. Stated she will try and get out for lunch. No behavioral issues per staff. MSE: middle aged woman, poor grooming. no movement disorder evident. Her speech is regular rate and rhythm. She is irritable, mood and affect are congruent to this, affect constricted. Her thought process is concrete. No gross evidence of delusions. Denies feeling depressed. No evidence of hallucinations. She has fair insight and fair judgment. Plan: irritable, possibly b/c I woke her up. Continue current plan of care. Encourage engaging in the milieu and in groups.
[2017-04-01 12:22] VITALS: BP 126/73
[2017-04-01 16:05] VITALS: BP 95/70
[2017-04-01 19:36] VITALS: BP 115/76
[2017-04-02 07:56] VITALS: BP 95/65
[2017-04-02 12:24] VITALS: BP 98/60
--- NOTE | 2017-04-02 14:50 | CP SOUTH PROGRESS NOTE PSYCH ---
Psych (Inpt) Progress Note Progress Note Include the following elements, when applicable: Involvement in the active treatment of the patient with behavioral observations of the patient and the patient's response to the treatment. Review of the ongoing treatment process in the context of the treatment plan. Indication of how multi-disciplinary staff members are carrying out the treatment plan. Plans for future interventions and recommendations for revision of the treatment plan. Liaison with other physicians/providers. Progress Note: Dr. Kaye's notes reviewed. Case and treatment plan discussed in team meeting. Staff reports that patient was in bed most of the weekend. Went to group on Sunday. More organized this admission. Patient has a hearing scheduled for 04/12/17 at 1 PM. Patient seen at 2:03 PM. She was asleep in her room but got up and met with me in office. Reports that she is taking it slowly today. Reports she is trying to keep it together. Plans to take a shower tomorrow. She is open to going to [employer]. Reports the weekend was good. Does not like being on a heart healthy diet. Appears awake and alert. Affect is calm and blunted. Mood is good. Rates sad mood 0/10 and anxiety 3/10. Denies feeling hopeless, helpless, worthless or guilty. Denies active and passive suicidal ideation. Denies homicidal ideation. Denies auditory and visual hallucinations and paranoid ideation. Describes sleep, appetite and energy as okay. Tolerating medications well, without complaint. I notified Damien Soto MD that the patient was readmitted. IMPRESSION: Slow progress. Continue present treatment plan. Patient is unable to function independently. Placement remains problematic. We are pursuing a conservatorship hearing, an [facility] application, and probate commitment to a [facility], all in parallel.
[2017-04-02 16:27] VITALS: BP 116/71
--- NOTE | 2017-04-02 17:39 | SOCIAL WORKER PROG NOTE PSYCH ---
Social Work Progress Note Progress Note 11:15am This principal technical writer attempted to meet with patient. She was in bed and did not want to meet as she wanted to sleep. 2:28pm This principal technical writer spoke with Denise at [facility] and was given the number for Tita Velasquez ([phone]). A vm was left for Tita, which was later returned by Coty who stated that this write should speak with Ayana Cook regarding progress and referral process. She stated that she would ask Ayana to call this principal technical writer. No patient information was provided during any of these calls. 4:40pm This principal technical writer met with patient. She inquired about information regarding [facility] and was informed that this principal technical writer is waiting for a call from them. This principal technical writer also showed the fee waiver form to the patient regarding transporter driver fees for the probate hearing. Patient stated that she did not want to looks at the form today, "maybe tomorrow." Patient appeared agitated, expressing concerns about going to a half-way. She stated that she did not want to meet any longer and ended the conversation. 4:46pm History and Physical as well as Dr. Wong's progress note from 04/02/17 [facility].
[2017-04-02 19:58] VITALS: BP 101/67
[2017-04-03 07:34] VITALS: BP 105/71
[2017-04-03 12:07] VITALS: BP 120/56
--- NOTE | 2017-04-03 14:40 | CP SOUTH PROGRESS NOTE PSYCH ---
Psych (Inpt) Progress Note Progress Note Include the following elements, when applicable: Involvement in the active treatment of the patient with behavioral observations of the patient and the patient's response to the treatment. Review of the ongoing treatment process in the context of the treatment plan. Indication of how multi-disciplinary staff members are carrying out the treatment plan. Plans for future interventions and recommendations for revision of the treatment plan. Liaison with other physicians/providers. Progress Note: Case and treatment plan discussed in team meeting. Staff reports that the patient is isolative at times and out on the unit at times. Appearing disheveled. Medication-compliant. Patient seen with medical student at 10:37 AM. She had been resting in bed but got up and met with us in the office. Appears awake and alert. Reports it is going okay. Wants to take a shower today. Reports that she got some rest in preparation for showering. She is afraid of falling in the shower. She is pleased that staff here assists her with showering. She is concerned about her safety (showering, etc.) at her next placement, stating "I'm afraid." Reports her son, Edgardo, has been too busy to visit. She expects he will be visiting tomorrow. Reports they talk on the phone almost daily. Affect is calm and blunted. Mood is good. Rates sad mood 0/10 and anxiety 3/10. Denies feeling hopeless, helpless or worthless. Does feel guilty. Denies suicidal and homicidal ideation. Denies auditory and visual hallucinations and paranoid ideation. Reports sleep is okay, appetite is good and energy is good. Tolerating medications well, without complaint. IMPRESSION: Slow progress. Continue present treatment plan. We are pursuing a conservatorship hearing and a probate commitment hearing. We are awaiting word from [employer]. We will be checking a Depakote level in the morning. Continues to require inpatient level of care, because the patient is unable to live independently.
[2017-04-03 15:22] VITALS: BP 111/68
--- NOTE | 2017-04-03 15:22 | SOCIAL WORKER PROG NOTE PSYCH ---
Social Work Progress Note Progress Note 1:15pm This caption writer met wit patient. She described her mood as "good" and is anxious to identify a place where she can live after leaving the hospital. She identified a primary concern as being unable to shower due to the fear of losing her balance. Patient denied SI/HI/AH/VH. This caption writer inquired about the patient's willingness to look at the fee waiver form for the court appointed state's attorney ( regarding the hearing next week). She requested to do this later this afternoon as she was very tired. This caption writer met with patient later in the afternoon to review the fee waiver form. Following this, the patient was visited by a sol who provided her with the documents regarding the hearing on 04/12/17 at 1pm. Patient reviewed the documents and requested that they be filed in her chart for safe keeping, which was done. 3:20pm This caption writer left vm for Jenniffer Sosa, community living specialist at [facility] to follow up on previous call as she had been unable to have a conversation at that time. ([phone], ext. [phone]).
[2017-04-03 15:57] VITALS: BP 111/68
--- NOTE | 2017-04-03 16:19 | SOCIAL WORKER PROG NOTE PSYCH ---
Social Work Progress Note Progress Note Practitioner Certification Form sent to Tai Erickson at [facility], fax number: , at 12:44pm on 04/03/17
[2017-04-03 20:08] VITALS: BP 118/90
[2017-04-04 07:37] VITALS: BP 114/72
--- NOTE | 2017-04-04 10:14 | SOCIAL WORKER PROG NOTE PSYCH ---
Social Work Progress Note Progress Note TC - Edgardo (son) - asked him if he was interested in being conservator for his Mother. He stated he "is not prepared to do this, and it's too much for me to do." Edgardo lives iwth his Mother, he stated she is often late or forgets to pay bills. She doesn't clean the house - he does. He has [employer] deliver groceries, and he doesn't have a car or drivers license - so he cannot drive her to MD appointments. She uses a case management coordinator at [facility] for transportation sometimes, or [employer]. He suggested maybe Claudia's sister, Margaret Santana may be able to be a conservator. TC - Margaret Santana may be able to be a conservator. Left VM to call back Mariela Hartmann LCSW. Spoke with Tanesha Bean at [facility] rgarding conservatorship - filing fee $225 , and $65 prasad for program engineer[address] Court can appoint a conservator - traffic law attorney or family member can be a conservator.
[2017-04-04 12:06] VITALS: BP 97/61
--- NOTE | 2017-04-04 13:39 | CP SOUTH PROGRESS NOTE PSYCH ---
Psych (Inpt) Progress Note Progress Note Include the following elements, when applicable: Involvement in the active treatment of the patient with behavioral observations of the patient and the patient's response to the treatment. Review of the ongoing treatment process in the context of the treatment plan. Indication of how multi-disciplinary staff members are carrying out the treatment plan. Plans for future interventions and recommendations for revision of the treatment plan. Liaison with other physicians/providers. Progress Note: Case and treatment plan discussed in team meeting. Staff reports that Depakote level is 57.2. We are looking at referral to [facility]. Observed ambulating well with walker. Required prompting to shower. Appearing depressed. Not incontinent. Patient seen at 11:48 AM. She was resting in bed but got up and met with me in the office. Complains of chronic leg pain from MS. Reports son wants her home with him. Affect is calm and blunted. Reports mood is okay. Rates sad mood and anxiety both 0/10. Denies feeling hopeless, hopeless or worthless. Feels guilty for leaving her son home alone on [address]. We are looking into whether he can come in on Day for a [employer] meal. Denies suicidal and homicidal ideation. Denies auditory and visual hallucinations and paranoid ideation. Reports sleep was okay last night except for waking up once due to roommate's snoring, but then patient put in earplugs and she went back to sleep. Reports appetite and energy are okay. Tolerating medications well, without complaint. IMPRESSION: Slow progress. Continue present treatment plan. Patient is unable to function at home independently. We are looking into placement options.
[2017-04-04 16:19] VITALS: BP 100/64
--- NOTE | 2017-04-04 17:13 | SOCIAL WORKER PROG NOTE PSYCH ---
Social Work Progress Note Progress Note 1:57pm This scientific writer left vm for Ayana Cook at [facility] ([phone]) to follow up from previous call in which this scientific writer was informed that the message would be relayed to Randy Cook. A vm with call back number was provided. No patient information was provided. 2:40pm This scientific writer met with patient. She described her mood as "ok." Patient stated that she is worried about being sent home as she struggles with cooking, housekeeping and taking the correct medication dose. She stated that she does not feel secure at home and feels "lonely" when her son is at work. Patient denied SI/HI/AH/VH. She was informed of avenues being explored ([facility], probate hearing and conservatorship). Patient identified that she is in , stated the date to be 04/02/17, and stated that she was here as "I wasn't acting like myself." 4:50pm This scientific writer received a call from Tai Erickson at [facility] in response to a vm left for her earlier today. She was informed that this scientific writer had made two attempts to submit the LOC form and did not appear to be successful either time as the computer failed to respond. Tai stated that she did not receive the form. This scientific writer will attempt again tomorrow, to which Tai was agreeable to.
[2017-04-04 19:47] VITALS: BP 116/70
[2017-04-05 07:52] VITALS: BP 98/63
[2017-04-05 12:25] VITALS: BP 107/59
--- NOTE | 2017-04-05 15:20 | CP SOUTH PROGRESS NOTE PSYCH ---
Psych (Inpt) Progress Note Progress Note Include the following elements, when applicable: Involvement in the active treatment of the patient with behavioral observations of the patient and the patient's response to the treatment. Review of the ongoing treatment process in the context of the treatment plan. Indication of how multi-disciplinary staff members are carrying out the treatment plan. Plans for future interventions and recommendations for revision of the treatment plan. Liaison with other physicians/providers. Progress Note: Case and treatment plan discussed in team meeting. flat screen worker indicates that commitment hearing is scheduled for 04/12 at 1 pm, [facility] application is pending and we will explore whether daughter will pursue conservatorship. Staff reports that the patient is doing fine but is needy. Selective about which staff she will ask to help her with showering. May be situationally depressed. Patient seen at 2:14 PM. She was resting in bed prior to my meeting with her. States she is getting ready to shower. Feels okay. Has no complaints but wants to know when she will be going. Feels "good." Affect is calm and blunted. Rates sad mood 0/10 and anxiety 3/10. Denies feeling hopeless, helpless, or worthless. Does feel guilty. Denies suicidal and homicidal ideation. Denies auditory and visual hallucinations and paranoid ideation. Reports having insomnia, so I advised her to avoid daytime napping. Reports appetite and energy are good. Tolerating medications well, without complaint. IMPRESSION: Slow progress. Continue present treatment plan. Placement remains problematic.
[2017-04-05 16:05] VITALS: BP 107/57
--- NOTE | 2017-04-05 17:04 | SOCIAL WORKER PROG NOTE PSYCH ---
See Addendum Social Work Progress Note Progress Note 4:20pm This typewriter tester met with patient. She reported that she had a good day and won a game during one of the groups. She described her mood as "good" and discussed enjoying the art activity that was facilitated in group. This typewriter tester informed patient that an attempt was made to reach her sister, Margaret Santana. Patient stated that Margaret's phone numbers has recently changed and suggested that her son is contacted for the updated number.
[2017-04-05 19:32] VITALS: BP 116/75
[2017-04-06 08:11] VITALS: BP 97/73
[2017-04-06 11:58] VITALS: BP 98/64
--- NOTE | 2017-04-06 14:29 | CP SOUTH PROGRESS NOTE PSYCH ---
Psych (Inpt) Progress Note Progress Note Include the following elements, when applicable: Involvement in the active treatment of the patient with behavioral observations of the patient and the patient's response to the treatment. Review of the ongoing treatment process in the context of the treatment plan. Indication of how multi-disciplinary staff members are carrying out the treatment plan. Plans for future interventions and recommendations for revision of the treatment plan. Liaison with other physicians/providers. Progress Note: Case and treatment plan discussed in team meeting. Staff reports that the patient is doing well. [facility] hasn't been returning rn social work's calls. Sister reportedly will pursue conservatorship. Patient seen at 12:15 pm with medical student. Patient was resting in bed but got up and met with us in office. Appears awake and alert. Reports doing well. Eager for discharge. Patient was informed that her son can join her on the unit for [employer] retargeting. Affect is calm and blunted. Mood is good. Rates sad mood and anxiety both 0/10. Denies feeling hopeless, helpless or worthless. Reports feeling guilt "a little bit." Denies SI, HI, AH, VH and PI. Sleep: reports she was up all night despite earplugs because roommate was noisy. Describes appetite and energy as good. Tolerating medications well, without complaint. IMPRESSION: Slow progress. Continue present treatment plan. Placement remains problematic. Patient was unable to function independently at home upon last discharge.
[2017-04-06 15:15] VITALS: BP 114/72
--- NOTE | 2017-04-06 15:44 | SOCIAL WORKER PROG NOTE PSYCH ---
Social Work Progress Note Progress Note 10:35am This data analyst report writer met with patient who was in bed. She stated that she had difficulty sleeping last night due to her roommate who was active throughout the night. Patient was informed that this data analyst report writer spoke with her sister, Margaret, earlier today regarding conservatorship and would contact this data analyst report writer later today to inform whether or not she will follow through with the process of becoming a conservator (Margaret stated that she would like to discuss the matter with her son first). Patient was informed that this data analyst report writer has not heard from [employer]. Patient confirmed that her sister works there. Patient stated that she was very tired due to lack of sleep last night and requested to end this meeting. This data analyst report writer left for patient's sister (Margaret Santana - [phone]) at 3: 40pm in response to Margaret's voicemail requesting a call back. Margaret stated in her message that she and her son would be willing to apply for conservatorship.
--- NOTE | 2017-04-06 16:40 | SOCIAL WORKER PROG NOTE PSYCH ---
Social Work Progress Note Progress Note Upon discussing patient's ability to engage in ADL's and other matters covered within the [facility] LOC form with Fermin Szymanski RN ([facility] RN), [facility] LOC was completed and submitted.
[2017-04-06 20:09] VITALS: BP 121/68
[2017-04-07 07:57] VITALS: BP 90/54
[2017-04-07 12:04] VITALS: BP 116/67
--- NOTE | 2017-04-07 13:13 | CP SOUTH PROGRESS NOTE PSYCH ---
Psych (Inpt) Progress Note Progress Note Include the following elements, when applicable: Involvement in the active treatment of the patient with behavioral observations of the patient and the patient's response to the treatment. Review of the ongoing treatment process in the context of the treatment plan. Indication of how multi-disciplinary staff members are carrying out the treatment plan. Plans for future interventions and recommendations for revision of the treatment plan. Liaison with other physicians/providers. Progress Note: Chart reviewed and progress discussed with nursing staff. Interview patient this morning. She was largely non-participatory in the interview this morning. Says "I don't really want to talk this morning ". I asked her if she had any acute concerns and she shook her head no. She denies any suicidal or homicidal ideation as well as any medication side effects. Vitals were reviewed and largely within normal limits. No new laboratory results today. Mental status exam: female lying in bed, positive psychomotor retardation. Speech was quiet, limited in amount. Mood was "okay. ", Affect was constricted, non-labile. Thought process was logical and linear. Thought content was without suicidal or homicidal ideation. Denies any perceptual disturbances. Cognition was grossly intact. Insight and judgment was fair. Assessment plan: Patient appears to be slowly improving. Continue present management as per primary team.
[2017-04-07 15:50] VITALS: BP 118/75
[2017-04-07 19:20] VITALS: BP 117/69
[2017-04-08 08:07] VITALS: BP 102/74
[2017-04-08 12:30] VITALS: BP 105/70
--- NOTE | 2017-04-08 12:35 | CP SOUTH PROGRESS NOTE PSYCH ---
Psych (Inpt) Progress Note Progress Note Include the following elements, when applicable: Involvement in the active treatment of the patient with behavioral observations of the patient and the patient's response to the treatment. Review of the ongoing treatment process in the context of the treatment plan. Indication of how multi-disciplinary staff members are carrying out the treatment plan. Plans for future interventions and recommendations for revision of the treatment plan. Liaison with other physicians/providers. Progress Note: Chart reviewed and progress discussed with nursing staff. Interview patient this morning. Somewhat more participatory in this morning's interview as compared to yesterday, however still quite terse and interacting. Denies any current complaints. Denies SI or HI, denies perceptual disturbances. Denies any current needs. Vitals were reviewed and largely within normal limits. No new laboratory results today. Mental status exam: female lying in bed, positive psychomotor retardation. Speech was quiet, limited in amount. Mood was "fine." Affect was constricted, non-labile. Thought process was logical and linear. Thought content was without suicidal or homicidal ideation. Denies any perceptual disturbances. Cognition was grossly intact. Insight and judgment was fair. Assessment plan: Patient continues to slowly improve. Continue present management as per primary team.
[2017-04-08 15:55] VITALS: BP 114/60
[2017-04-08 19:50] VITALS: BP 119/66
[2017-04-09 07:42] VITALS: BP 88/56
[2017-04-09 12:20] VITALS: BP 99/55
--- NOTE | 2017-04-09 13:12 | CP SOUTH PROGRESS NOTE PSYCH ---
Psych (Inpt) Progress Note Progress Note Include the following elements, when applicable: Involvement in the active treatment of the patient with behavioral observations of the patient and the patient's response to the treatment. Review of the ongoing treatment process in the context of the treatment plan. Indication of how multi-disciplinary staff members are carrying out the treatment plan. Plans for future interventions and recommendations for revision of the treatment plan. Liaison with other physicians/providers. Progress Note: Dr. Nunez's notes reviewed. Medication list reviewed. Case discussed with nurse, who reports that the patient vomited 2-3 times last night. Appeared more withdrawn but looks fine this morning. AM BP 88/56. Kept breakfast down. Son will be visiting later. Patient was asleep in bed at 11:10 AM but got up and met with me in office. She is dressed in blue paper scrubs. She is using her rolling walker. States her son, Edgardo, will be coming in at 5 PM. Patient appears awake and alert. Wants to know when and where she will be going. Mood is good. Rates sad mood and anxiety both 0/10. Affect is calm and blunted. Denies feeling hopeless, helpless or worthless. Does feel guilty. Denies suicidal and homicidal ideation. Denies auditory and visual hallucinations and paranoid ideation. Patient reports sleep was not too good because, despite use of earplugs, her roommate's snoring kept her up. Describes appetite and energy as good. Tolerating medications well, without complaint. IMPRESSION: Slow progress. Continue present treatment plan. Placement remains problematic. Patient is scheduled for a Depakote level tomorrow morning.
[2017-04-09 15:56] VITALS: BP 91/59
[2017-04-09 20:05] VITALS: BP 97/69
[2017-04-10 07:49] VITALS: BP 99/64
[2017-04-10 12:33] VITALS: BP 105/88
--- NOTE | 2017-04-10 13:23 | CP SOUTH PROGRESS NOTE PSYCH ---
Psych (Inpt) Progress Note Progress Note Include the following elements, when applicable: Involvement in the active treatment of the patient with behavioral observations of the patient and the patient's response to the treatment. Review of the ongoing treatment process in the context of the treatment plan. Indication of how multi-disciplinary staff members are carrying out the treatment plan. Plans for future interventions and recommendations for revision of the treatment plan. Liaison with other physicians/providers. Progress Note: Case and treatment plan discussed in team meeting. Lab Valproic Acid 58.6 ug/mL 04/10/17 0615 Staff reports that the patient slept a lot. She gives appropriate responses to questions. Makes her needs known. We believe that [facility] will be coming in to see the patient. Patient seen at 12:47 PM. She was asleep in her room but got up and met with me in the office. She is dressed in blue paper scrubs. She is using a rolling walker to help with ambulation. Apparently her son, Edgardo, was unable to visit yesterday but she states he will be visiting this afternoon. Patient reports doing okay. Has no complaints. Affect is calm and blunted. Mood is okay. Denies feeling sad or worried, "just tired." Denies feeling hopeless, helpless or worthless. Reports feeling guilty. Denies suicidal and homicidal ideation. Denies auditory and visual hallucinations and paranoid ideation. Tolerating medications well. States that she sleeps so much by day because her roommate snores and keeps her up at night. We will look into a possible room change. IMPRESSION: Slow progress. Continue present treatment plan. Placement remains problematic.
[2017-04-10 16:39] VITALS: BP 127/60
--- NOTE | 2017-04-10 17:42 | SOCIAL WORKER PROG NOTE PSYCH ---
Social Work Progress Note Progress Note 10:58am This life insurance underwriter spoke with patient's sister, Margaret Santana ([phone]) by phone, to follow up on the conversation regarding conservatorship. Margaret stated that she was at work and did not have much time to talk. She informed that this life insurance underwriter that patient has expressed that she does not want her to be involved as a conservator and therefore would not pursue. Regarding [employer] (where Margaret states that she works), she recommended that this life insurance underwriter contact Doris for further information on the program (this life insurance underwriter had previously been in contact with Doris and was transferred to another individual). 2:10pm This life insurance underwriter met with the patient. She confirmed that she does not want her sister to be her conservator because "she can't handle it. She has her stuff to deal with." Patient inquired about other discharge options. While she expressed that she would like to go home, she acknowledged that she may not be able to care for herself on her own. She was reminded of the hearing scheduled for 04/12/17 and that the [employer] application has been submitted. This life insurance underwriter received a vm from [place] (William) stating that she would visit Claudia today around 6:30pm. Patient and nursing were informed of this.
[2017-04-10 20:17] VITALS: BP 106/74
[2017-04-11 07:40] VITALS: BP 94/72
[2017-04-11 11:51] VITALS: BP 115/63
--- NOTE | 2017-04-11 14:09 | CP SOUTH PROGRESS NOTE PSYCH ---
Psych (Inpt) Progress Note Progress Note Include the following elements, when applicable: Involvement in the active treatment of the patient with behavioral observations of the patient and the patient's response to the treatment. Review of the ongoing treatment process in the context of the treatment plan. Indication of how multi-disciplinary staff members are carrying out the treatment plan. Plans for future interventions and recommendations for revision of the treatment plan. Liaison with other physicians/providers. Progress Note: Case and treatment plan discussed in team meeting. Patient had difficulty sleeping last night so extra trazodone was ordered. Described as irritable at times. Sleeps most of the day. Patient was seen by [facility] worker. Staff reports that the patient will only shower if a particular mental health worker helps her. Patient seen at 12:07 PM. States she did not sleep well last night. Asking where she will be going. Confirms that [facility] worker met with her. Appears awake and alert. Mood is good. Affect is calm and blunted. Rates sad mood and anxiety both 0/10. Denies feeling hopeless, helpless or worthless. Does feel guilty. Denies suicidal and homicidal ideation. Denies auditory and visual hallucinations and paranoid ideation. Reports appetite and energy are good. Tolerating medications well. IMPRESSION: Slow progress. Continue present treatment plan. Placement remains problematic. Probate commitment hearing is scheduled for tomorrow.
--- NOTE | 2017-04-11 15:06 | SOCIAL WORKER PROG NOTE PSYCH ---
See Addendum Social Work Progress Note Progress Note 11:23am This freelance writer received call from Jenniffer Sosa at [facility]. The call was returned and a was left with a call back number for this freelance writer. 12:45pm This freelance writer met with patient. She stated that she met with Angeles (from [facility]) last night who "asked me alot of questions like what my hobbies were." Treatment options that were being explored were reviewed with the patient ( hearing on 04/12/17, [facility], conservatorship). Patient stated that she would like to return home, however, acknowledged that she did not take care of herself when she was discharged the last time from this hospital. Patient was informed that this freelance writer had left a for Jenniffer Sosa. 3:00pm This freelance writer spoke with Jenniffer Sosa ([facility] immigration case manager) by phone ([phone]) to was informed of the different avenues currently being explored ([facility] - fdc facility, conservatorship and probate hearing on 04/12/17). She inquired about being able to attend the hearing tomorrow. A message has been left for Dr. Wong regarding this and this freelance writer will contact Jenniffer upon receiving a response.
--- NOTE | 2017-04-11 15:42 | SOCIAL WORKER PROG NOTE PSYCH ---
Social Work Progress Note Progress Note 3:40pm This group underwriter spoke with Margaret Santana, patient's sister, ([phone]) to follow up regarding conservatorship and option of having a conservator appointed. Margaret stated that she would like to discuss this with her son first and will call this group underwriter back.
[2017-04-11 15:50] VITALS: BP 115/77
[2017-04-11 19:48] VITALS: BP 119/71
[2017-04-12 07:41] VITALS: BP 120/77
[2017-04-12 11:51] VITALS: BP 117/76
--- NOTE | 2017-04-12 14:07 | CP SOUTH PROGRESS NOTE PSYCH ---
Psych (Inpt) Progress Note Progress Note Include the following elements, when applicable: Involvement in the active treatment of the patient with behavioral observations of the patient and the patient's response to the treatment. Review of the ongoing treatment process in the context of the treatment plan. Indication of how multi-disciplinary staff members are carrying out the treatment plan. Plans for future interventions and recommendations for revision of the treatment plan. Liaison with other physicians/providers. Progress Note: Case and treatment plan discussed in team meeting. Staff reports that the patient remains status quo. Stays in bed. Only allows staff member Faviola to help with showering. Patient seen at 11:53 a.m. Awake and alert. Dressed in street clothing. Uses rolling walker. Knows hearing is planned for 1 pm. Affect is calm and blunted. Mood is good. Reports she took a shower and feels clean/healthy. Sad 0/10. Anxiety 0/10. Denies feeling hopeless, helpless or worthless. Feels guilty always because she can't provide for her son, who can't afford $950 rent, utilities/cable/food. Denies SI, HI, AH, VH and PI. Sleep: poor because of snoring roommate. Appetite/energy: good. Tolerating medications well, without complaint. Patient had probate commitment hearing today around [address] Mast did not find cause for commitment to a state hospital. Patient may remain here voluntarily. IMPRESSION: Slow progress. Continue present treatment plan. We continue to pursue alf placement for the patient.
[2017-04-12 15:44] VITALS: BP 114/76
--- NOTE | 2017-04-12 16:14 | SOCIAL WORKER PROG NOTE PSYCH ---
Social Work Progress Note Progress Note 1pm A hearing took place and it was found that the patient did not need to be committed to a state hospital. 1:35pm This report writer left voicemail for [facility] inquirng about status. 3:45pm This report writer met with patient. She was lying in bed, but engaged in the conversation. She stated that she was pleased with the outcome of the hearing. Patient inquired about treatment moving forward. She was informed that this report writer left vm for [facility] and is waiting for a response. She was also informed that conservatorship will continue to be explored. Patient was engaged and spontaneous during this conversation, showing interest in treatment planning. 4:06pm This report writer spoke with Wendy from [facility] by phone ([phone], ext. [phone]) in response to her vm. She stated that a decision will be made available on .
[2017-04-12 20:00] VITALS: BP 120/75
[2017-04-13 07:35] VITALS: BP 105/75
--- NOTE | 2017-04-13 11:54 | CP SOUTH PROGRESS NOTE PSYCH ---
Psych (Inpt) Progress Note Progress Note Include the following elements, when applicable: Involvement in the active treatment of the patient with behavioral observations of the patient and the patient's response to the treatment. Review of the ongoing treatment process in the context of the treatment plan. Indication of how multi-disciplinary staff members are carrying out the treatment plan. Plans for future interventions and recommendations for revision of the treatment plan. Liaison with other physicians/providers. Progress Note: Case and treatment plan discussed in team meeting. Per staff, the patient thinks that the marketing technology coordinator said that she does not need to go to a residential. Went to groups yesterday afternoon. Showered. Patient seen at 10:40 AM. She was resting in bed but got up and met with me in the office. Dressed in street clothes. Feels good. Has no complaints. Affect is calm and blunted. Appears mildly sedated. Mood is good. Rates sad mood and anxiety both 0/10. Denies feeling hopeless, helpless or worthless. Does feel guilty. Denies suicidal and homicidal ideation. Denies auditory and visual hallucinations and paranoid ideation. States she slept well last night because of a roommate change. Appetite is good. Energy is good. Tolerating medications well, without complaint. She is happy with the marketing technology coordinator's decision that she does not need to go to a state hospital. I reminded the patient that she is here at [facility] on a voluntary basis and that she may submit a three-day paper. We learned later this morning that [facility] has authorized a 90 day SNF placement. IMPRESSION: Slow progress. Continue present treatment plan. We will work on SNF placement.
[2017-04-13 12:32] VITALS: BP 107/68
[2017-04-13 15:44] VITALS: BP 93/77
--- NOTE | 2017-04-13 16:31 | SOCIAL WORKER PROG NOTE PSYCH ---
See Addendum Social Work Progress Note Progress Note 10:50am This newswriter met with patient. She was informed that this newswriter had received notice that [facility] will provide a decision by 04/17/17. She stated that she is not interested in going to a assisted and would like to try to cook and clean on her own. She stated that she would consider an assisted living facility. Patient denied SI/HI/AH/VH and stated that she slept well last night. Following the meeting with this newswriter, this newswriter received notice from [facility] that they would approve 90 days. Patient was informed and she maintained that she is not willing to go to a assisted. Patient was not willing to look at a list of facilities and stated that she wanted to sleep. 2:03pm This newswriter attempted to contact the patient's son, Edgardo, regariding the [facility] approval. His vm was not set up and a message could not be left.
[2017-04-13 19:35] VITALS: BP 118/62
[2017-04-14 08:19] VITALS: BP 101/64
--- NOTE | 2017-04-14 11:24 | CP SOUTH PROGRESS NOTE PSYCH ---
Psych (Inpt) Progress Note Progress Note Include the following elements, when applicable: Involvement in the active treatment of the patient with behavioral observations of the patient and the patient's response to the treatment. Review of the ongoing treatment process in the context of the treatment plan. Indication of how multi-disciplinary staff members are carrying out the treatment plan. Plans for future interventions and recommendations for revision of the treatment plan. Liaison with other physicians/providers. Progress Note: Case discussed with RN, who reports that the patient received prn trazodone around midnight and slept thereafter. Isolated in bed. Sleeping better. We will now reduce VS to daily. Patient seen at 10:[address]. Using rolling walker. She is considering submitting a 3-day paper but hasn't. Feels good. Has no complaints. Affect is calm and blunted. Mood is good. Rates sad mood and anxiety both 0/10. Denies feeling hopeless, helpless, worthless or guilty. Denies SI, HI, AH, VH and PI. Sleep/appetite/energy all described as good. Tolerating current medications well, without complaint. IMPRESSION: Slow progress. Continue present treatment plan. If patient and family do not support SNF placement, we will likely discharge patient on 04/17/17.
[2017-04-15 08:36] VITALS: BP 92/58
--- NOTE | 2017-04-15 14:48 | CP SOUTH PROGRESS NOTE PSYCH ---
Psych (Inpt) Progress Note Progress Note Include the following elements, when applicable: Involvement in the active treatment of the patient with behavioral observations of the patient and the patient's response to the treatment. Review of the ongoing treatment process in the context of the treatment plan. Indication of how multi-disciplinary staff members are carrying out the treatment plan. Plans for future interventions and recommendations for revision of the treatment plan. Liaison with other physicians/providers. Progress Note: Case discussed with RN, who reports that the patient is a little irritable, otherwise fine. Patient seen at 1:36 pm. Was asleep in her room but got up and met with me in office. "Going slow today." Has no complaints; "same old stuff." Affect is calm and blunted. Does not want a conservator, stating that she can take care of her money and her medical decisions. Reports mood is good. Sad 0/10. Anxiety 0/10. Denies feeling hopeless, helpless or worthless. Does feel guilty. Denies SI, HI, AH, VH and PI. Sleep: fine but just got a new roommate. Reports appetite and energy are good. Tolerating medications well. IMPRESSION: Slow progress. Continue present treatment plan. Placement remains problematic.
[2017-04-16 08:16] VITALS: BP 129/73
[2017-04-16 12:06] VITALS: BP 127/54
--- NOTE | 2017-04-16 17:23 | CP SOUTH PROGRESS NOTE PSYCH ---
Psych (Inpt) Progress Note Progress Note Include the following elements, when applicable: Involvement in the active treatment of the patient with behavioral observations of the patient and the patient's response to the treatment. Review of the ongoing treatment process in the context of the treatment plan. Indication of how multi-disciplinary staff members are carrying out the treatment plan. Plans for future interventions and recommendations for revision of the treatment plan. Liaison with other physicians/providers. Progress Note: The patient was discussed with the unit staff and interviewed one-to-one. She is being hospitalized for bipolar disorder and grave disability. She is known to us from previous inpatient and IOP treatment. The patient is taking her medication currently. She reports feeling "good". The patient states that she is very well capable of taking care of herself, that she is not taking medication and she will continue taking the medication, she stated that she does not need to be conserved and that she would be okay taking medication on her own and waiting for her son to come home from work. 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 She appears slightly disheveled. Her affect is constricted, sluggish, blunted, appropriate to the situation and content. Her thought processes are linear, there is no overt psychosis, the patient states and also believes that she will not hurt herself or anybody else. The patient has good attention and concentration, intact memory, she is of average intelligence. She denies auditory or visual hallucinations, she tolerates the medication well. We will continue present management, the patient seems to be improving slowly, the search for placement continues.
[2017-04-17 07:40] VITALS: BP 106/76
--- NOTE | 2017-04-17 13:43 | CP SOUTH PROGRESS NOTE PSYCH ---
Psych (Inpt) Progress Note Progress Note Include the following elements, when applicable: Involvement in the active treatment of the patient with behavioral observations of the patient and the patient's response to the treatment. Review of the ongoing treatment process in the context of the treatment plan. Indication of how multi-disciplinary staff members are carrying out the treatment plan. Plans for future interventions and recommendations for revision of the treatment plan. Liaison with other physicians/providers. Progress Note: Angelique Ramírez MD's note reviewed. Case and treatment plan discussed in team meeting. Patient's son, Edgardo, was planning to discuss SNF placement with the patient. Staff reports patient had an irritable period yesterday morning but overall is doing well. Was incontinent of stool on 04/14/17. Demanding that staff take care of her. Patient seen at 10:37 AM. She was resting in bed but got up and met with me in office. She was noted to be walking briskly with assistance of rolling walker. Feels okay. Wants to go home. Asking if she has to pay for a visiting nurse, as she has no money. Patient states she will take her medications at home as scheduled. Affect is calm and blunted. She appears awake and alert and subdued. Rates sad mood and anxiety both 0/10. Denies feeling hopeless, helpless or worthless. Does feel guilty. Denies active and passive suicidal ideation. Denies homicidal ideation. Denies auditory and visual hallucinations and paranoid ideation. Reports sleep is now terrible because she has a new roommate who snores. Describes appetite as good and energy as okay. Tolerating medications well, without complaint. I advised the patient that she can submit a three-day paper. IMPRESSION: Slow progress. Continue present treatment plan. It sounds as though neither the patient nor her son support her going to an SNF. At this point, we anticipate discharge tomorrow to home with outpatient follow-up.
--- NOTE | 2017-04-17 15:29 | SOCIAL WORKER PROG NOTE PSYCH ---
Social Work Progress Note Progress Note 12:55pm This rewriter met with patient. She stated that she is not interested in going to a [place] and would like to return home and live with her son as she did prior to the admission. Patient was agreeable to a visiting nurse. This rewriter called [facility] and spoke with Ian (with patient present). Ian stated that S would not be able to provide daily visiting nurse services. [facility] was contacted at 1:07pm; no intake representatives were available at the time of the call. This rewriter spoke with Etelvina at [facility]. She requested that the patient History and Physical is faxed for review (fax number [phone] at 1329 on 04/17) and she would contact this rewriter upon review. This rewriter and the patient contacted her son, Edgardo, by phone. He was informed that the patient does not want to go to a [place] and would like to return home. He was agreeable to this and stated, "she's doing better." This rewriter received a call from Sonja at [facility] who requested to meet with the patient today, which the patient was agreeable to. Upon Sonja's arrival, patient met with her and this rewriter. Patient expressed concerns about going to the [place] and was informed that [facility] has authorized 90 days. Sonja explained to the patient that she was not able to accept her for visiting nurse services prior to the patient going to an SNF. Patient ultimately stated that she was willing to go to a SNF and Sonja stated that she would be able to follow the patient during her stay there. Patient asked to leave the meeting, which she did.
[2017-04-18 08:05] VITALS: BP 113/77
[2017-04-18] MEDS ORDERED: GABAPENTIN300 M2 PO (13:52)
[2017-04-18] MEDS ORDERED: TRAZODONE HCL50 M1 PO (13:52)
[2017-04-18] MEDS ORDERED: NICOTINE PATCH1 EAC2 TOP (13:52)
[2017-04-18] MEDS ORDERED: RISPERIDONE1 MG/1 M1 PO ×2 (13:52)
[2017-04-18] MEDS ORDERED: PANTOPRAZOLE SO40 M1 PO (13:52)
[2017-04-18] MEDS ORDERED: DIVALPROEX SOD500 M2 PO (13:52)
[2017-04-18] MEDS ORDERED: LORATADINE10 M1 PO (13:52)
[2017-04-18] MEDS ORDERED: TRIAMTERENE-HC1 EAC1 PO (13:52)
--- NOTE | 2017-04-18 14:50 | Patient Discharge Instructions ---
Psych Discharge Inst General Discharge Information Reason for Admission: Per son, patient was "speaking gibberish" and was displaying odd behavior. Visiting nurse found the patient was pacing. Patient refused her medications at home and asked the visiting nurse to leave. paint factory worker noted that the patient's affect was labile. Patient reported to park worker supervisor that she was having pain everywhere and experienced VHs of planes flying earlier that day. Psy Discharge Primary Diag+ Bipolar d/o, depressed w/ psychotic features Psy Discharge Secondary Diag+ Multiple sclerosis Hypertension GERD Summary Tests/Major Procedures Lab AST 19 U/L 03/23/17 1830 BUN 25 mg/dL H 03/23/17 1830 BUN/Creatinine Ratio 27.8 % H 03/23/17 1830 Carbon Dioxide 32 mmol/L H 03/23/17 1830 Chloride 99 mmol/L 03/23/17 1830 Cholesterol 254 MG/DL H 02/22/17 1145 Cholesterol/HDL Ratio 3.6 % 02/22/17 1145 Creatinine 0.9 mg/dL 03/23/17 1830 Glucose 111 mg/dL H 03/23/17 1830 HDL Cholesterol 71 mg/dL H 02/22/17 1145 Hemoglobin A1c 5.6 % 02/22/17 1145 LDL Cholesterol, Calc 160 mg/dL H 02/22/17 1145 Potassium 3.7 mmol/L 03/23/17 1830 Sodium 141 mmol/L 03/23/17 1830 TSH &T3 &Free T4 Intrp 0.507 uIU/mL 02/22/17 1145 Triglycerides 116 mg/dL 02/22/17 1145 Absolute Granulocytes 7.2 /CUMM H 03/23/17 1830 Absolute Monocytes 0.8 /CUMM H 03/23/17 1830 Hct 38.5 % 03/23/17 1830 Hgb 12.6 G/DL 03/23/17 1830 MCH 26.9 PG L 03/23/17 1830 PUBS MCHC 32.8 G/DL L 03/23/17 1830 Plt Count 268 /CUMM 03/23/17 1830 WBC 10.7 /CUMM 03/23/17 1830 Serum Alcohol < 10.0 MG/DL 03/23/17 1830 Studies Pending at [place]: None. Patient Instructions Contact Information Your Psychiatrist on [facility] was Tyron Wong MD * If you are experiencing an emergency related to this hospitalization, please call [phone] to contact the treating psychiatrist or the psychiatrist-on- call. * To Request a copy of your medical records, please contact the Medical Records Department at [phone]. * To request results of studies pending at the time of discharge, please call [phone]. * Continue your Medications until directed to stop by your Healthcare provider. General Medication Information Please continue to take your new medications and your continued home medications , unless otherwise indicated on your discharge medication list, or unless directed by your MD or AVIATION TECHNICIAN AIRCRAFT to stop them. Special Instructions Diet Heart Healthy Activity As Tolerated (Using a walker here.) Other Inst/Recommendations Follow up w/PCP & Dr. Soto for medical condx's and abnl labs above. - Tobacco Use Treatment Offered Post DC Medications Offered: Script Given-See Med List Post DC Tobacco Treatment Plan: Tl Tobacco Tx Pgm Program Appt Date: 04/25/17 Program Appt Time: 1600 - EtOH/Drug Use D/O Treatment Offered Post DC Medications Offered: NA-No EtOH/Drug Use D/O Post DC EtOH/SubAbuse TX Plan: NA-No EtOH/Drug Use D/O Metabolic Screening () Not Applicable, patient not on a neuroleptic. OR () Patient on a neuroleptic(s) . Enter below results for Hemoglobin A1C, and lipid panel if obtained during the last 365 days. BMI: 26.000 Blood Pressure: 113/77 Laboratory Results From [facility] (If applicable): See lab section, above. Advance Directives Does the Patient have Medical Advance Directives No/Refused further info Does Pt have Psychiatric Advance Directives? No/Refused further info Does Patient have a Designated Surrogate Decision Maker: No Information About Psychiatric Advance Directives Provided? Refused Discharge Plan Post Hospital Treatment Plan: Kunal, TBA. ANGELIA Szymanski.
--- NOTE | 2017-04-18 16:50 | CP SOUTH PROGRESS NOTE PSYCH ---
Psych (Inpt) Progress Note Progress Note Include the following elements, when applicable: Involvement in the active treatment of the patient with behavioral observations of the patient and the patient's response to the treatment. Review of the ongoing treatment process in the context of the treatment plan. Indication of how multi-disciplinary staff members are carrying out the treatment plan. Plans for future interventions and recommendations for revision of the treatment plan. Liaison with other physicians/providers. Progress Note: Case and treatment plan discussed in team meeting. Staff reports that the patient showered. She expressed some worry today about leaving and ability to care for herself. Patient seen at 10:39 AM. She was asleep in her room but got up and met with me in the office. She woke up and stated "oh, Leighton! I was just getting rest." She wants discharge. Feels tired. Affect is calm and blunted. Mood is good. Rates sad mood and anxiety both 0/10. Denies feeling hopeless, helpless, worthless or guilty. Denies active and passive suicidal ideation. Denies homicidal ideation. Denies auditory and visual hallucinations and paranoid ideation. Describes sleep, appetite and energy as okay. Tolerating medications well, without complaint. Feels ready and safe for discharge to home. Patient was strongly advised to remain compliant with her medications. IMPRESSION: Patient has achieved maximum hospital benefit. We have been unable to arrange any visiting nurse services. Neither the patient's son nor her sister have agreed to pursue conservatorship, and at this point, I doubt that we can make a strong argument about her lacking capacity. We plan to discharge the patient AMA today, as she wishes to leave. We will refer her to [facility].
--- NOTE | 2017-04-18 17:26 | DISCHARGE SUMMARY REPORT-PSYCH ---
Visit Information Visit Dates/Diagnosis' Admission Date: 03/26/17 Discharge Date: 04/18/17 Reason for Admission: Per son, patient was "speaking gibberish" and was displaying odd behavior. Visiting nurse found the patient was pacing. Patient refused her medications at home and asked the visiting nurse to leave. printing worker supervisor noted that the patient's affect was labile. Patient reported to clam bed worker that she was having pain everywhere and experienced VHs of planes flying earlier that day. Psy Discharge Primary Diag: Bipolar d/o, depressed w/ psychotic features Psy Discharge Secondary Diag: Multiple sclerosis Hypertension GERD Hospital Course Significant Lab Findings: Lab AST 19 U/L 03/23/17 1830 BUN 25 mg/dL H 03/23/17 1830 BUN/Creatinine Ratio 27.8 % H 03/23/17 1830 Carbon Dioxide 32 mmol/L H 03/23/17 1830 Chloride 99 mmol/L 03/23/17 1830 Cholesterol 254 MG/DL H 02/22/17 1145 Cholesterol/HDL Ratio 3.6 % 02/22/17 1145 Creatinine 0.9 mg/dL 03/23/17 1830 Glucose 111 mg/dL H 03/23/17 1830 HDL Cholesterol 71 mg/dL H 02/22/17 1145 Hemoglobin A1c 5.6 % 02/22/17 1145 LDL Cholesterol, Calc 160 mg/dL H 02/22/17 1145 Potassium 3.7 mmol/L 03/23/17 1830 Sodium 141 mmol/L 03/23/17 1830 TSH &T3 &Free T4 Intrp 0.507 uIU/mL 02/22/17 1145 Triglycerides 116 mg/dL 02/22/17 1145 Absolute Granulocytes 7.2 /CUMM H 03/23/17 1830 Absolute Monocytes 0.8 /CUMM H 03/23/17 1830 Hct 38.5 % 03/23/17 1830 Hgb 12.6 G/DL 03/23/17 1830 MCH 26.9 PG L 03/23/17 1830 PUBS MCHC 32.8 G/DL L 03/23/17 1830 Plt Count 268 /CUMM 03/23/17 1830 WBC 10.7 /CUMM 03/23/17 1830 Serum Alcohol < 10.0 MG/DL 03/23/17 1830 Course Complications: None. Consultations: The patient was seen for admission H&P by Dr. Mar. He noted: "This middle-aged female is admitted for increasing weakness and worsening mental status as well as noncompliance with the medication. She reports that she cannot live at home anymore and needs a place to go because her son cannot take care of her. She has history of multiple sclerosis and hypertension but has not been taking any medication at home she claims she used to be on injections for MS but has not taken it recently. Presently we will continue her omeprazole as well as triamterene and hydrochlorothiazide in the same dose as before but she does not require any new treatment from medical standpoint. Her admission CBC electrolytes and liver functions are essentially within normal limits and acceptable and she does not need any other testing at this time." Allergies: Coded Allergies: quetiapine (Severe, ANAPHYLAXIS 03/02/17) bee venom protein (honey bee) (UNKNOWN 03/23/17) carbamazepine (PRURITIS 03/02/17) cefprozil (From CEFZIL) (CAN'T BREATHE PER PT 03/23/17) honey (unknown 02/23/17) nut - unspecified (unknown 02/23/17) Hospital Course/TX Response: The patient was monitored on the unit for safety and mood disorder. She tended to isolate in bed. Unlike her recent previous admission, there was no evidence of psychosis this admission. Patient had a probate commitment hearing for referral to a [facility] but the time study statistician ruled against probate commitment. Son and sister did not pursue conservatorship and it was not clear that we could demonstrate lack of capacity. Patient did not wish to stay in the hospital and she did not want penitentiary placement. She wanted to go home and decision was made to discharge AMA. Despite best efforts, we have not been able to identify any visiting nurse services for the patient. Progress note from date of discharge, 04/18/17: Case and treatment plan discussed in team meeting. Staff reports that the patient showered. She expressed some worry today about leaving and ability to care for herself. Patient seen at 10:39 AM. She was asleep in her room but got up and met with me in the office. She woke up and stated "oh, Leighton! I was just getting rest." She wants discharge. Feels tired. Affect is calm and blunted. Mood is good. Rates sad mood and anxiety both 0/10. Denies feeling hopeless, helpless, worthless or guilty. Denies active and passive suicidal ideation. Denies homicidal ideation. Denies auditory and visual hallucinations and paranoid ideation. Describes sleep, appetite and energy as okay. Tolerating medications well, without complaint. Feels ready and safe for discharge to home. Patient was strongly advised to remain compliant with her medications. IMPRESSION: Patient has achieved maximum hospital benefit. We have been unable to arrange any visiting nurse services. Neither the patient's son nor her sister have agreed to pursue conservatorship, and at this point, I doubt that we can make a strong argument about her lacking capacity. We plan to discharge the patient AMA today, as she wishes to leave. We will refer her to [facility]. Discharge HBIPS - Tobacco Use Treatment Offered Post DC Medications Offered: Script Given-See Med List Post DC Tobacco Treatment Plan: [facility] Program Appt Date: 04/25/17 Program Appt Time: 1600 - EtOH/Drug Use D/O Treatment Offered Post DC Medications Offered: NA-No EtOH/Drug Use D/O Post DC EtOH/SubAbuse TX Plan: NA-No EtOH/Drug Use D/O Metabolic Screening - Screen if on a Neuroleptic Medication - Metabolic screening should include: - Blood Pressure, BMI, Glucose or Hgb A1c, & a - Lipid profile from within the past 365 days. Metabolic Screening () Not Applicable, patient not on a neuroleptic. OR () Patient on a neuroleptic(s) . Enter below results for Hemoglobin A1C, and lipid panel if obtained during the last 365 days. BMI: 26.000 Blood Pressure: 113/77 Laboratory Results From [facility] (If applicable): Lab Cholesterol 254 MG/DL H 02/22/17 1145 Cholesterol/HDL Ratio 3.6 % 02/22/17 1145 HDL Cholesterol 71 mg/dL H 02/22/17 1145 Hemoglobin A1c 5.6 % 02/22/17 1145 LDL Cholesterol, Calc 160 mg/dL H 02/22/17 1145 Triglycerides 116 mg/dL 02/22/17 1145 Discharge Instructions General Discharge Information Multiple Neuroleptics: ([x]) Not Applicable OR Document below three failed attempts at monotherapy, or a plan to taper to monotherapy, or augmentation of Clozapine. () Discharge Diet Heart Healthy Discharge Activity As Tolerated (Using a walker here.) DC Disposition: Returning to home and son. Referrals Ordered Referrals Provider Referral For Groups: [ Care] [facility] [address] [facility], [place] [phone] Jenniffer Sosa (casemanager) will contact the patient to schedule an appointment. Provider Referral 04/19/17 For Groups: [facility] [place] [facility] [phone] Ann Saenz LCSW will contact the patient on 04/19/17 to schedule an appointment Provider Referral 05/02/17 For Groups: [Dr. Soto] [facility] [address], [place] [phone] Appointment: 05/02/17 at 1pm Provider Referral 04/30/17 For Groups: [ Outpatient] [facility] [place], [place] [phone] Intake appointment: 04/30/17 with Maricruz at 10:45am Medication appointment: 05/14/[address] Ramírez 3pm Prescriptions Stop taking the following medications: Nicotine (Nicotine Patch) 21 MG/24 HOUR PATCH.TD24 On the skin DAILY Qty = 14 Phenyleph/Mineral Oil/Petrolat (Preparation H Ointment) 0.25 %-14 %-74.9 % OINT.APPL On the skin EVERY SIX HOURS NEEDED as needed for hemorrhoids Qty = 1 Continue taking these medications: Loratadine (Loratadine) 10 MG TABLET 10 Milligram ORAL DAILY Qty = 14 This prescription has been renewed Divalproex Sodium (Divalproex Sodium) 500 MG TABLET. 500 Milligram ORAL TWICE DAILY Qty = 28 This prescription has been renewed Trazodone HCl (Trazodone HCl) 50 MG TABLET 50 Milligram ORAL AT BEDTIME Qty = 14 This prescription has been renewed Risperidone (Risperidone) 1 MG/ML SOLUTION 4 Milligram ORAL AT BEDTIME Qty = 56 This prescription has been renewed Risperidone (Risperidone) 1 MG/ML SOLUTION 3 Milligram ORAL DAILY Qty = 42 This prescription has been renewed Pantoprazole Sodium (Pantoprazole Sodium) 40 MG TABLET. 1 Tablet ORAL DAILY Qty = 14 Comments: [facility]ST GIVEN [facility]: 03/22/17 @ 0672 This prescription has been renewed Start taking the following new medications: Nicotine (Nicotine Patch) 14 MG/24 HOUR PATCH.TD24 14 Milligram On the skin DAILY Qty = 14 No Refills The following medications have been changed: Old: Gabapentin (Gabapentin) 300 MG CAPSULE 2 Capsule ORAL THREE TIMES DAILY Qty = 180 New: Gabapentin (Gabapentin) 300 MG CAPSULE 2 Capsule ORAL THREE TIMES DAILY Qty = 84 Comments: Last Taken: 03/22/17 Time: 1551 Old: Triamterene/Hydrochlorothiazid (Triamterene-Hctz 37.5-25 MG Tb) 37.5 MG-25 MG TABLET 1 Tablet ORAL DAILY Qty = 30 New: Triamterene/Hydrochlorothiazid (Triamterene-Hctz 37.5-25 MG Tb) 37.5 MG-25 MG TABLET 1 Tablet ORAL DAILY Qty = 14 Comments: Last Taken: 03/22/17 Time: 0841 Other Inst/Recommendations Follow up w/PCP & Dr. Soto for medical condx's and abnl labs above. Copies To: Desiree NICHOLS,Angelique; Brittany NICHOLS,Damien Cool
--- NOTE | 2017-04-18 19:01 | SOCIAL WORKER PROG NOTE PSYCH ---
See Addendum Social Work Progress Note Progress Note This narrative writer spoke with patient's son, Edgardo, by phone. He was informed that this narrative writer has been unable to schedule visiting nurse services are unable to provide care due to the patient's insurance. He was also informed that [facility] agreed to provide services only if the patient enters a halfway prior to going home. 11:28AM: Referral was sent to [facility] (diagnostic assessment, psychiatric admission, medication list) in interest of referring her to medication management. This narrative writer reviewed the following appointments with the patient, who accepted: - Dr. Soto and an appointment has been scheduled for Sunday05/02/17 at 1pm - Patient will be contacted by Jenniffer Sosa at [facility] to schedule an appointment - Patient will be contacted by Ann Saenz LCSW on 04/19/17 to schedule an in-home therapy appointment - [facility] stated that they will only schedule medication appointments if the patient is willing to attend group therapy with them. Patient declined and she accepted a intake appointment with OPS as well as a medication appointment with OPS. This narrative writer spoke with Caprice Cabrera with case management who provided Kaylin's number, hospital liaison for [facility] Care: [phone]. This narrative writer spoke with Kaylin by phone who stated that she did not believe that the patient would be covered for services due to her insurance. She suggested that this narrative writer call the intake number ([phone]) to confirm. This narrative writer then spoke with Deborah who confirmed that what Kaylin stated was true and services could not be provided. 7:03pm This narrative writer spoke with patient's son by phone. He stated that he anticipates to arrive to around 8pm tonight. He was informed of the appointments that have been scheduled and that a visiting nurse could not be scheduled due to insurance. Edgardo stated that he would assist the patient with medications and transporting to appointments. Patient's son stated that he feels comfortable with the patient discharging tonight and with the services that have been scheduled. Appointment dates and times as well as medications will be reviewed with the patient and her son when he arrives prior to the patient leaving the hospital.
--- NOTE | 2017-04-19 14:26 | SOCIAL WORKER PROG NOTE PSYCH ---
Social Work Progress Note Faxed Referral(s) 1 Referred To: [facility] Transition of Care Documents sent: Health Summary Fax #: [phone] Faxed by: Diaz Dumont Date faxed: 04/19/17 Time Faxed: [phone] Faxed Referral(s) 2 Referred To: OPS Transition of Care Documents sent: Health Summary Fax #: [phone] Faxed by: Diaz Dumont Date faxed: 04/19/17 Time Faxed: [phone]
== END 2017-04-18 20:37 | DRG 885 ==
LOC: ERH 17:51 → CP SOUTH 03-26 10:34 → ERHI 03-26 10:34 → ENRESERV 03-26 16:00 → ENTRNSPT 03-26 16:16 → CMPTRNSPT 03-26 16:53 → CP SOUTH 03-26 16:59
PROVIDERS: Emergency Medicine
DX: F31.5 Bipolar disorder, current episode depressed, severe, with psychotic features (principal); G35 Multiple sclerosis; I10 Essential (primary) hypertension; K21.9 Gastro-esophageal reflux disease without esophagitis
CPT/HCPCS: 36415; 80307; G0463; G0480

== ENCOUNTER 2017-12-18 13:29 | Emergency (ER) | payer OTHER, MEDICARE ==
[~2017-12-18] VITALS: Ht 170.2 cm; Wt 77.1 kg
[~2017-12-18 13:29] MED LIST changes: +AMLODIPINE BESY10 M1 PO; +CRESTOR5 M1 PO; +NICOTINE PATCH1 EAC2 TOP; +OXYBUTYNIN CHLO10 M1 PO
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
[2017-12-18 14:35] LABS: ABSOLUTE BASOPHIL COUNT 0.1 /CUMM (0.0-0.2); ABSOLUTE EOSINOPHIL COUNT 0.4 /CUMM (0.0-0.7); ABSOLUTE GRANULOCYTE CT 5.7 /CUMM (1.4-6.5); ABSOLUTE LYMPH COUNT 2.4 /CUMM (1.2-3.4); ABSOLUTE MONOCYTE COUNT 0.6 /CUMM (0.10-0.60); BASOPHIL % 0.9 % (0.0-2.0); EOSINOPHIL % 4.3 % (0-5); GRANULOCYTE % 62.2 % (42.2-75.2); MEAN CORPUSCULAR HGB 28.2 PG (27.0-31.0); MEAN CORPUSCULAR HGB CONC 33.8 G/DL (33.0-37.0); MEAN CORPUSCULAR VOLUME 83.4 FL (81.0-99.0); MEAN PLATELET VOLUME 9.6 FL (7.4-10.4); PLATELET COUNT 213 /CUMM (130-400); RED BLOOD CELL CT 4.55 /CUMM (4.20-5.40); WHITE BLOOD CELL COUNT 9.2 /CUMM (4.8-10.8)
--- NOTE | 2017-12-18 15:00 | RADIOLOGY REPORT ---
EXAMINATION: CR RIGHT KNEE. CR LEFT KNEE. CLINICAL INFORMATION: Trauma. Presumptive diagnosis of fracture. Knee pain. COMPARISON: Right knee films dated 07/23/2013. TECHNIQUE: 4 views of the right knee. 4 views of the left knee. FINDINGS: Bilateral knees: No acute fracture or dislocation. No significant knee joint effusion. Minimal spurring seen in the patellofemoral joints bilaterally, left more prominent than right. Medial and lateral femoral compartments relatively well-maintained. No joint calcifications. No prepatellar soft tissue swelling. Diffuse osteopenia. IMPRESSION: 1. Diffuse osteopenia. No acute fracture. 2. Minimal patellofemoral osteoarthritis in both knees.
[2017-12-18 17:28] VITALS: BP 130/70
[2017-12-18] MEDS ORDERED: HYDROCORTISO453.6 G1 TOP (20:36)
[2017-12-20] MEDS ORDERED: TRAZODONE HCL50 M1 PO (19:06)
[2017-12-20] MEDS ORDERED: RISPERDAL4 M1 PO (19:06)
== END 2017-12-18 20:32 ==
LOC: ERH 13:29
PROVIDERS: Student in an Organized Health Care Education/Training Program
DX: R62.7 Adult failure to thrive (principal); G35 Multiple sclerosis; R21 Rash and other nonspecific skin eruption; M25.561 Pain in right knee; M25.562 Pain in left knee; R53.1 Weakness; I10 Essential (primary) hypertension
CPT/HCPCS: 73562-LT; 73562-RT; 80307; 81003; 93005; 93010